=== PATIENT | male | born 1945 | race Caucasian/White ===

== ENCOUNTER 2016-12-31 11:05 | Inpatient (IN) | payer OTHER, MEDICARE ==
[~2016-12-31] VITALS: Ht 185.4 cm; Wt 90.9 kg
[2016-12-31] VITALS (13 sets, daily range): BP systolic 101–121; BP diastolic 61–83; PULSE 57–88; RESP 16–20; TEMP 98–98.5; O2SAT 59–99
[2016-12-31] MEDS ORDERED: NITROGLYCERIN 2% OINT 1 GM PACKET TOP ONE (11:30)
[2016-12-31] MEDS ORDERED: MORPHINE SULFATE 4 MG/ML INJ IV PUSH ONE (11:30)
[2016-12-31] MEDS ORDERED: SODIUM CHLORIDE 0.9% FLUSH 5 ML FLUSH IVF PRN ×2 (11:30→16:45)
[2016-12-31] MEDS ORDERED: ASPIRIN 81 MG CHEW TAB PO ONE (11:30)
--- NOTE | 2016-12-31 11:34 | PD ---
HPI . Chest pain Chief Complaint: Chest Pain Time Seen by Provider: 11:29 Travel History International Travel<30 days: No Contact w/Intl Traveler<30days: No Traveled to known affect area: No History of Present Illness HPI Patient presents with a three-day history of chest pain. He has been taking nitroglycerin with relief of his chest pain. He states that he required 3 nitroglycerin this morning. He reports some associated shortness of breath and diaphoresis. He denies nausea or dizziness. He states that his chest pain has been coming and going. He has not noted any exacerbating factor but it is relieved by nitroglycerin. Patient also reports a recent injury to his left chest wall. He has some discomfort associated with that. But, the pain that he presents to us with today is different from his rib pain. [id number]: Just to the left of the sternum QUALITY: Heavy DURATION: 3 days TIMING: Comes and goes CONTEXT: Known coronary artery disease MODIFYING FACTORS: Relieved by nitroglycerin ASSOCIATED SYMPTOMS: Shortness of breath and diaphoresis PFSH Past Medical History High Cholesterol: Yes Dementia: Yes ("Early Alzheimer's") Diabetes: Yes Patient Takes Glucophage: Yes Myocardial Infarction: Yes Tetanus Vaccination: Unknown Influenza Vaccination: No (Can't remember) Past Surgical History Appendectomy: Yes Coronary Artery Bypass Graft: Yes Eye Surgery: Yes (Left) Social History Alcohol Use: No Tobacco Use: No Substance Use: No Allergies-Medications (Allergen,Severity, Reaction): Coded Allergies: No Known Allergies (Unverified , 12/31/16) Reported Meds & Prescriptions Reported Meds & Active Scripts Active Reported Feosol (Ferrous Sulfate) 200 Mg Tab 200 Mg PO DAILY Hydrocodone-Acetaminophen 7.5-325 mg Tab 1 Tab PO TID PRN Mirtazapine 30 Mg Tab 30 Mg PO HS Atorvastatin (Atorvastatin Calcium) 80 Mg Tab 80 Mg PO HS Metformin (Metformin HCl) 1,000 Mg Tab 1,000 Mg PO BIDPC With meals Glipizide 5 Mg Tab 7.5 Mg PO BIDAC Take 30 minutes before a meal Donepezil 10 Mg Tab 10 Mg PO HS Januvia (Sitagliptin Phosphate) 100 Mg Tab 100 Mg PO DAILY Duloxetine DR (Duloxetine HCl) 60 Mg Capdr 60 Mg PO DAILY Gabapentin 300 Mg Cap 300 Mg PO TID Nitroglycerin Patch 24 HR (Nitroglycerin) 0.4 Mg/Hr Patch 0.4 Mg T-DERMAL DAILY PRN Lisinopril 5 Mg Tab 5 Mg PO DAILY Clopidogrel (Clopidogrel Bisulfate) 75 Mg Tab 75 Mg PO DAILY Aspirin Low Dose (Aspirin) 81 Mg Chew 81 Mg CHEW DAILY Omeprazole 20 Mg Tab 20 Mg PO BID Amcinonide Topical (Amcinonide) 0.1% Cream 1 Applic TOPICAL BID Apply a thin film to affected area(s) Review of Systems Except as stated in HPI: all other systems reviewed are Neg General / Constitutional: No: Fever, Chills Eyes: No: Blurred Vision HENT: Positive: Headaches Cardiovascular: Positive: Chest Pain or Discomfort Respiratory: Positive: Shortness of Breath Gastrointestinal: No: Nausea, Vomiting, Diarrhea Skin: Positive Other (diaphoresis) Physical Exam Narrative GENERAL: Open-heart appearing. No acute distress. SKIN: Warm and dry. HEAD: Atraumatic. Normocephalic. EYES: Pupils equal and round. ENT: No nasal bleeding or discharge. Mucous membranes pink and moist. NECK: Trachea midline. Neck is supple. CARDIOVASCULAR: Regular rate and rhythm. Heart sounds are normal. RESPIRATORY: No accessory muscle use. Lungs are clear with full air movement throughout. He does have some tenderness to palpation of the left lateral chest wall. GASTROINTESTINAL: Abdomen soft, non-tender, nondistended. MUSCULOSKELETAL: No obvious deformities. No edema. NEUROLOGICAL: Awake and alert. No obvious cranial nerve deficits. Motor grossly within normal limits. Normal speech. PSYCHIATRIC: Appropriate mood and affect; insight and judgment normal. Data Data Last Documented VS Vital Signs Date Time Temp Pulse Resp B/P Pulse Ox O2 Delivery O2 Flow Rate FiO2 12/31/16 12:55 76 18 101/61 96 Nasal Cannula 2 12/31/16 11:15 98.0 Orders Basic Metabolic Panel (Bmp) (12/31/16 11:29) Ckmb (Isoenzyme) Profile (12/31/16 11:29) Complete Blood Count With Diff (12/31/16 11:29) Magnesium (Mg) (12/31/16 11:29) Prothrombin Time / Inr (Pt) (12/31/16 11:29) Act Partial Throm Time (Ptt) (12/31/16 11:29) Troponin I (12/31/16 11:29) Chest, Single Ap (12/31/16 11:29) Ecg Monitoring (12/31/16 11:29) Bilateral Bp Monitoring (12/31/16 11:29) Iv Access Insert/Monitor (12/31/16 11:29) Oximetry (12/31/16 11:29) Oxygen Administration (12/31/16 11:29) Aspirin Chew (Aspirin Chew) (12/31/16 11:30) Morphine Inj (Morphine Inj) (12/31/16 11:30) Nitroglycerin 2% Oint (Nitroglycerin 2% (12/31/16 11:30) Sodium Chloride 0.9% Flush (Ns Flush) (12/31/16 11:30) CKMB (12/31/16 11:30) CKMB% (12/31/16 11:30) Labs Laboratory Tests Test 12/31/16 11:30 White Blood Count 6.2 TH/MM3 Red Blood Count 5.03 MIL/MM3 Hemoglobin 12.8 GM/DL Hematocrit 38.8 % Mean Corpuscular Volume 77.3 FL Mean Corpuscular Hemoglobin 25.5 PG Mean Corpuscular Hemoglobin 32.9 % Concent Red Cell Distribution Width 15.4 % Platelet Count 208 TH/MM3 Mean Platelet Volume 9.1 FL Neutrophils (%) (Auto) 62.5 % Lymphocytes (%) (Auto) 28.5 % Monocytes (%) (Auto) 6.2 % Eosinophils (%) (Auto) 1.3 % Basophils (%) (Auto) 1.5 % Neutrophils # (Auto) 3.8 TH/MM3 Lymphocytes # (Auto) 1.8 TH/MM3 Monocytes # (Auto) 0.4 TH/MM3 Eosinophils # (Auto) 0.1 TH/MM3 Basophils # (Auto) 0.1 TH/MM3 CBC Comment DIFF FINAL Differential Comment Prothrombin Time 11.9 SEC Prothromb Time International 1.1 RATIO Ratio Activated Partial 25.0 SEC Thromboplast Time Sodium Level 137 MEQ/L Potassium Level 4.4 MEQ/L Chloride Level 99 MEQ/L Carbon Dioxide Level 25.7 MEQ/L Anion Gap 12 MEQ/L Blood Urea Nitrogen 16 MG/DL Creatinine 1.00 MG/DL Estimat Glomerular Filtration 73 ML/MIN Rate Random Glucose 384 MG/DL Calcium Level 9.1 MG/DL Magnesium Level 1.5 MG/DL Total Creatine Kinase 189 U/L Creatine Kinase MB 1.5 NG/ML Troponin I LESS THAN 0.02 NG/ML MDM Medical Decision Making Medical Screen Exam Complete: Yes Emergency Medical Condition: Yes Interpretation(s) EKG shows a sinus rhythm. He had a single PVC. He has some nonspecific lateral T-wave changes. This patient has no old EKGs in our system for comparison. Differential Diagnosis Differential diagnosis of chest pain includes but is not limited to musculoskeletal pain, pulmonary embolism, acute coronary syndrome, pneumonia, pleurisy Narrative Course Patient presents for evaluation of a three-day history of chest pain which has come and gone and which has been relieved by nitroglycerin. CBC & BMP Diagram 12/31/16 11:30 Initial cardiac enzymes are negative. The patient is currently nothing by mouth for cardiac catheter. He will be allowed permissive hyperglycemia. No evidence of DKA. Critical Care Narrative Aggregate critical care time was 45 minutes. Time to perform other separately billable procedures was not included in the critical care time. My time did not include minutes spent treating any other patients simultaneously or on activities that did not directly contribute to the patient's treatment. The services I provided to this patient were to treat and/or prevent clinically significant deterioration due to possible ACS/non-STEMI I provided critical care services requiring my management, as noted below: Chart data review, documentation time, medication orders and management, vital sign assessments/reviewing monitor data, ordering and reviewing lab tests, ordering and interpreting/reviewing x-rays and diagnostic studies, care of the patient and discussion of the patient with the admitting physicians Physician Communication Physician Communication Dr. Elkins once the patient be sent to [facility] for catheterization today. He would like for the patient to be admitted to the hospitalist service. I have subsequently spoken with Dr. Georges. Diagnosis Primary Impression: Chest pain Qualified Code: R07.9 - Chest pain, unspecified type Admitting Information Admitting Physician Requests: Observation Condition: Stable Hailee Burns MD Dec 31, 2016 11:34
[2016-12-31 11:49] LABS: AUTOMATED NEUTROPHIL # 3.8 TH/MM3 (1.8-7.7); BASOPHIL # 0.1 TH/MM3 (0-0.2); BASOPHIL % 1.5 % (0.0-2.0); EOSINOPHIL # 0.1 TH/MM3 (0-0.4); EOSINOPHIL % 1.3 % (0.0-4.0); HEMATOCRIT 38.8 % (39.0-51.0); HEMO FLAGS DIFF FINAL; LYMPH % 28.5 % (9.0-44.0); LYMPHOCYTE # 1.8 TH/MM3 (1.0-4.8); MEAN CELL VOLUME 77.3 FL (80.0-100.0); MEAN CORPUSCULAR HEMOGLOBIN 25.5 PG (27.0-34.0); MEAN CORPUSCULAR HGB CONC 32.9 % (32.0-36.0); MONO % 6.2 % (0.0-8.0); NEUT % 62.5 % (16.0-70.0); PLATELET COUNT 208 TH/MM3 (150-450); RED BLOOD COUNT 5.03 MIL/MM3 (4.50-5.90); RED CELL DISTRIBUTION WIDTH 15.4 % (11.6-17.2); WHITE BLOOD COUNT 6.2 TH/MM3 (4.0-11.0)
[2016-12-31 11:53] LABS: CHLORIDE 99 MEQ/L (98-107); POTASSIUM 4.4 MEQ/L (3.5-5.1); SODIUM (NA) 137 MEQ/L (136-145)
[2016-12-31 11:56] LABS: ANION GAP 12 MEQ/L (5-15); BICARBONATE 25.7 MEQ/L (21.0-32.0); BLOOD UREA NITROGEN 16 MG/DL (7-18); MAGNESIUM 1.5 MG/DL (1.5-2.5)
[2016-12-31 11:57] LABS: INTERNATIONAL NORMALIZED RATIO 1.1 RATIO; PROTHROMBIN TIME - PATIENT 11.9 SEC (9.8-11.6)
[2016-12-31 11:59] LABS: GLOMERULAR FILTRATION RATE 73 ML/MIN (>89)
[2016-12-31 12:02] LABS: CREATINE KINASE 189 U/L (39-308)
--- NOTE | 2016-12-31 12:11 | RADHPO ---
EXAM DATE/TIME: 12/31/2016 12:01 [place] COMPARISON: No previous studies available for comparison. INDICATIONS : Chest pain MEDICAL HISTORY : Hypercholesterolemia. SURGICAL HISTORY : CABG. Cardiac stents ENCOUNTER: Initial ACUITY: 1 day PAIN SCORE: 4/10 LOCATION: Bilateral chest FINDINGS: No infiltrate, effusion or pneumothorax. Heart size upper limits of normal. Patient has had previous median sternotomy. CONCLUSION: No evidence of acute cardiopulmonary disease. Joey Cordoba MD on December 31, 2016 at 12:09 Board Certified Radiologist. This report was verified electronically.
[2016-12-31 12:15] LABS: CKMB 1.5 NG/ML (0.5-3.6)
[2016-12-31] MEDS ORDERED: AMCIN.1%T TOPICAL (12:47)
[2016-12-31] MEDS ORDERED: DONE10TA7 PO (12:47)
[2016-12-31] MEDS ORDERED: LISI-519 PO (12:47)
[2016-12-31] MEDS ORDERED: CLOP75TA PO (12:47)
[2016-12-31] MEDS ORDERED: FERR200T PO (12:47)
[2016-12-31] MEDS ORDERED: NITR0.4D2 T-DERMAL (12:47)
[2016-12-31] MEDS ORDERED: ATOR1TAB18 PO (12:47)
[2016-12-31] MEDS ORDERED: SITA1TAB2 PO (12:47)
[2016-12-31] MEDS ORDERED: ASPI81CH37 CHEW (12:47)
[2016-12-31] MEDS ORDERED: METF1000 PO (12:47)
[2016-12-31] MEDS ORDERED: GLIP5TAB8 PO (12:47)
[2016-12-31] MEDS ORDERED: MIRT30TA PO (12:47)
[2016-12-31] MEDS ORDERED: DULO1CAP3 PO (12:47)
[2016-12-31] MEDS ORDERED: GABA300C5 PO (12:47)
[2016-12-31] MEDS ORDERED: HYDR-3580 PO (12:47)
[2016-12-31] MEDS ORDERED: OMEP20TA PO (12:47)
[2016-12-31] MEDS ORDERED: SODIUM CHLORIDE 0.9% FLUSH 5 ML FLUSH FLUSH PRN (14:15)
[2016-12-31] MEDS ORDERED: NITROGLYCERIN 0.4 MG SL 25 TABS/BTL SL PRN (14:15)
[2016-12-31] MEDS ORDERED: ACETAMINOPHEN 325 MG TAB PO PRN (15:00)
[2016-12-31] MEDS ORDERED: IOHEXOL 350 MG/ML 100 ML BTL (for Cath Lab) OTHER ONE (15:07)
[2016-12-31] MEDS ORDERED: HEPARIN-NS/PF INJ 500 ML ONE (15:14)
[2016-12-31] MEDS ORDERED: MIDAZOLAM HCL 2 MG/2 ML VIAL ONE (15:14)
[2016-12-31] MEDS ORDERED: HEPARIN SODIUM - IV 10,000 UNITS/10 ML VIAL ONE (16:03)
[2016-12-31] MEDS ORDERED: VERAPAMIL HCL 5 MG/2 ML VIAL ONE (16:27)
[2016-12-31] MEDS ORDERED: MISC INFORMATION XX ONE (16:45)
[2016-12-31] MEDS ORDERED: ATROPINE SULFATE 1 MG/ML VIAL IV PRN (16:45)
[2016-12-31] MEDS ORDERED: ONDANSETRON HCL 4 MG/2 ML VIAL IV PRN (17:00)
--- NOTE | 2016-12-31 19:33 | MB ---
cc: RAHEL KING DATE OF CONSULTATION 12/31/16 1944 REASON FOR CONSULTATION Chest pain. HISTORY OF PRESENT ILLNESS 71-year old male with known coronary artery disease status post five vessel bypass surgery, hypertension and hyperlipidemia that presented to the [place] emergency department complaining of chest discomfort that was relieved by nitroglycerin. Evaluation in the emergency department. His troponins were negative. His EKG showed no acute ST changes, however, given the patient's presentation, he was transferred to [facility] for further management and evaluation by cardiology. He reports some chest discomfort with exertion while gardening and relieved by rest and nitroglycerin. He reports being compliant with medications. He denies fevers, chills, recent travel, nausea, vomiting, diarrhea, abdominal pain, lightheadedness, syncope or bleeding issues. REVIEW OF SYSTEMS Negative except for what is mentioned in HPI. PAST MEDICAL HISTORY 1. Hyperlipidemia, 2. Hypertension, 3. Diabetes. 4. Dementia 5. Myocardial infarction status post bypass surgery, 6. Appendectomy. SOCIAL HISTORY Denies alcohol, tobacco or illicit drug use. FAMILY HISTORY Noncontributory. MEDICATIONS Cardiac home medications 1. Lipitor 80 mg p.o. daily. 2. Nitroglycerin 0.4 mg p.r.n. for chest pain 3. Lisinopril 5 mg p.o. daily. 4. Plavix 75 mg p.o. daily. 5. Aspirin 81 mg p.o. daily. ALLERGIES NO KNOWN DRUG ALLERGIES PHYSICAL EXAMINATION VITAL SIGNS: Temperature 98, respiratory rate 18, heart rate 68, blood pressure 101/66, O2 sats 95% ON 2 liters nasal cannula. GENERAL: He is alert, awake, oriented times three in no acute distress. NECK: No JVD, no carotid bruits. HEART: Regular rate and rhythm. No murmurs, rubs or gallops. ABDOMEN: Soft, nontender, nondistended. Positive bowel sounds. LUNGS: Clear to auscultation bilaterally. EXTREMITIES: No cyanosis or edema. Pulses throughout. LABORATORY DATA CBC - hemoglobin 12, hematocrit 38, platelet count 208, INR 1.1. Chemistries - BUN 16, creatinine 1.0, troponin less than 0.02. IMAGING STUDIES Chest x-ray - No evidence of acute cardiopulmonary process. ASSESSMENT/PLAN 71-year-old male presenting to the emergency department with angina concerning for acute coronary syndrome. He remains hemodynamically stable and chest pain free currently. Given the patient's presentation as well as known history of coronary artery disease, I think it is reasonable to pursue an invasive risk stratification strategy with a left heart cath plus/minus intervention. Risks, benefits of left heart cath/PCI including but not limited to bleeding, infection , acute kidney injury, stroke, emergent bypass surgery, RI, stroke and again explained to the patient. The patient understands the risks and he is willing to proceed. RECOMMENDATIONS 1. Keep n.p.o. for left heart cath today 2. Continue medication optimization. The patient should be started on long- acting nitrate Imdur 30 mg p.o. daily as well as on metoprolol 12.5 mg p.o. b.i.d. Thank you for the opportunity to take part in the care of this. patient. Further therapy to be determined. MD EMILIA Saeed/ /5:10 PM /7:12 PM MTDLary
[2016-12-31] MEDS ORDERED: GLUCAGON 1 MG/ML VIAL OTHER PRN (20:45)
[2016-12-31] MEDS ORDERED: DEXTROSE 50% IN WATER 50 ML VIAL(D50) IV PUSH PRN (20:45)
[2016-12-31] MEDS ORDERED: SODIUM CHLORIDE 0.9% FLUSH 5 ML FLUSH IVF SCH (21:00)
[2016-12-31] MEDS ORDERED: MIRTAZAPINE 15 MG TAB PO SCH (21:00)
[2016-12-31] MEDS: SODIUM CHLORIDE 0.9% FLUSH 5 ML FLUSH FLUSH SCH (21:05)
[2016-12-31] MEDS: MORPHINE SULFATE 4 MG/ML INJ IV PUSH PRN (21:06)
[2016-12-31] MEDS: METOPROLOL TARTRATE 25 MG TAB PO SCH (21:06)
[2016-12-31] MEDS: INSULIN ASPART SUPPLEMENTAL SCALE SQ SCH (21:17)
[2016-12-31] MEDS: SUMAtriptan INJ 6 MG/0.5 ML VIAL SQ PRN (23:53)
[2017-01-01] VITALS (14 sets, daily range): BP systolic 97–117; BP diastolic 67–76; PULSE 50–74; RESP 18–20; TEMP 97.7–98; O2SAT 95–96
[2017-01-01] MEDS: INSULIN ASPART SUPPLEMENTAL SCALE SQ SCH ×2 (06:41→11:15)
[2017-01-01] MEDS ORDERED: ISOSORBIDE MONONITRATE 30 MG TAB PO SCH (07:00)
[2017-01-01] MEDS: MORPHINE SULFATE 4 MG/ML INJ IV PUSH PRN (07:51)
[2017-01-01] MEDS: METOPROLOL TARTRATE 25 MG TAB PO SCH (07:51)
--- NOTE | 2017-01-01 08:57 | HHI.HP ---
HPI Service [facility] Hospitalists Primary Care Physician Juan Toussaint MD Admission Diagnosis chest pain Diagnoses: Chief Complaint: Chest pain Travel History International Travel<30 Days: No Contact w/Intl Traveler <30 Da: No Traveled to Known Affected Are: No History of Present Illness 71 years old male with history of coronary artery disease status post 5 vessel CABG, hypertension hyperlipidemia, initially presented to [facility] with waning of her chest pain that was relieved at home with nitroglycerin EKG was with no acute ST changes patient transferred to [facility], he underwent heart catheter, report pending but verbal report stating no acute lesion. I saw patient this morning he was resting comfortably in bed, denied any chest pain, no nausea or vomiting, no abdominal pain diarrhea constipation, no lightheaded or dizziness but he doesn't work having headache and attributed it to the nitroglycerin. Also patient reported to me that he now remember his pain might need you to chest trauma he got a few days ago with his vehicle door and his crutch while he was trying to get his dog out of the car. Review of Systems All 10 systems reviewed and was positive for what is mentioned in history of present illness otherwise negative Past Family Social History Past Medical History Hyperlipidemia Hypertension Diabetes mellitus Dementia Coronary artery disease status post KS and CABG Appendectomy Past Surgical History Appendectomy Allergies: Coded Allergies: No Known Allergies (Unverified , 12/31/16) Family History Father of CHF Social History Denied tobacco alcohol or illicit drug abuse Physical Exam Vital Signs Vital Signs Date Time Temp Pulse Resp B/P Pulse Ox O2 Delivery O2 Flow Rate FiO2 01/01/17 07:40 59 01/01/17 07:40 97.7 74 18 107/69 96 01/01/17 06:00 54 01/01/17 05:00 52 01/01/17 04:40 98.0 56 20 105/76 96 01/01/17 04:00 63 20 97/67 96 01/01/17 04:00 52 01/01/17 03:00 57 20 113/70 95 01/01/17 03:00 58 01/01/17 02:00 50 01/01/17 02:00 52 20 107/71 95 01/01/17 01:00 52 01/01/17 01:00 50 20 117/71 95 01/01/17 00:53 20 01/01/17 00:00 64 12/31/16 23:53 98.5 68 20 105/68 97 12/31/16 23:36 20 12/31/16 23:00 57 12/31/16 23:00 75 20 112/83 93 12/31/16 22:00 63 20 121/71 95 12/31/16 22:00 63 12/31/16 21:11 20 12/31/16 21:00 60 12/31/16 21:00 62 20 107/65 95 12/31/16 20:00 65 20 109/71 96 12/31/16 20:00 65 12/31/16 19:00 98.5 69 20 115/72 94 12/31/16 19:00 68 12/31/16 18:00 60 12/31/16 17:06 59 12/31/16 17:06 59 16 115/73 59 12/31/16 13:40 68 18 101/66 95 Nasal Cannula 2 12/31/16 12:55 76 18 101/61 96 Nasal Cannula 2 12/31/16 11:45 88 18 106/69 99 Nasal Cannula 2 108/75 12/31/16 11:45 16 12/31/16 11:40 99 Nasal Cannula 2 12/31/16 11:40 99 Nasal Cannula 2 12/31/16 11:20 73 12/31/16 11:15 98.0 73 18 111/72 95 Physical Exam GENERAL: This is a well-nourished, well-developed patient, in no apparent distress. SKIN: No rashes, warm and dry HEAD: Atraumatic. Normocephalic. EYES: Pupils equal round and reactive. Extraocular motions intact. No scleral icterus. ENT: Nose without bleeding, or drainage, Airway patent. NECK: Trachea midline. Supple CARDIOVASCULAR: Regular rate and rhythm without murmurs, gallops, or rubs. RESPIRATORY: Fair air entry bilaterally. No wheezes, rales, or rhonchi. GASTROINTESTINAL: Abdomen soft, non-tender, nondistended. Positive bowel sounds MUSCULOSKELETAL: Extremities without clubbing, cyanosis, or edema. Pedal pulses appreciated NEUROLOGICAL: Awake and alert. Moves all extremity. Normal speech.no focal neurological deficit Laboratory Laboratory Tests Test 12/31/16 11:30 White Blood Count 6.2 Red Blood Count 5.03 Hemoglobin 12.8 Hematocrit 38.8 Mean Corpuscular Volume 77.3 Mean Corpuscular Hemoglobin 25.5 Mean Corpuscular Hemoglobin 32.9 Concent Red Cell Distribution Width 15.4 Platelet Count 208 Mean Platelet Volume 9.1 Neutrophils (%) (Auto) 62.5 Lymphocytes (%) (Auto) 28.5 Monocytes (%) (Auto) 6.2 Eosinophils (%) (Auto) 1.3 Basophils (%) (Auto) 1.5 Neutrophils # (Auto) 3.8 Lymphocytes # (Auto) 1.8 Monocytes # (Auto) 0.4 Eosinophils # (Auto) 0.1 Basophils # (Auto) 0.1 CBC Comment DIFF FINAL Differential Comment Prothrombin Time 11.9 Prothromb Time International 1.1 Ratio Activated Partial 25.0 Thromboplast Time Sodium Level 137 Potassium Level 4.4 Chloride Level 99 Carbon Dioxide Level 25.7 Anion Gap 12 Blood Urea Nitrogen 16 Creatinine 1.00 Estimat Glomerular Filtration 73 Rate Random Glucose 384 Calcium Level 9.1 Magnesium Level 1.5 Total Creatine Kinase 189 Creatine Kinase MB 1.5 Troponin I LESS THAN 0.02 Result Diagram: 12/31/16 1130 12/31/16 1130 Imaging Last Impressions Chest X-Ray 12/31/16 1129 Signed Impressions: Service Date/Time: Saturday, December 31, 2016 12:01 - CONCLUSION: No evidence of acute cardiopulmonary disease. Joey Cordoba MD Assessment and Plan Assessment and Plan 71 years old male came with Chest pain a rule out ACS in a patient with history of coronary artery disease and CABG: Aspirin, oxygen, Morphine iv Continue statin iraida, ASHIA inhibitor, statin Status post heart catheter by Dr. Elkins 12/31/16 verbal report cleaning patent, possible underlying musculoskeletal, may benefit from few days NSAID Hyperlipidemia continue statin Hypertension continue ASHIA inhibitor and beta iraida Diabetes mellitus hold metformin, continue glipizide, Accu-Chek with sliding scale Dementia continue the Panafil Coronary artery disease status post KS and CABG: Workup as above DVT prophylaxis with ambulation, heparin Discussed Condition With Patient Physician Certification 2 Midnight Certification Type: Admission for Inpatient Services Order for Inpatient Services The services are ordered in accordance with Medicare regulations or non- Medicare payer requirements, as applicable. In the case of services not specified as inpatient-only, they are appropriately provided as inpatient services in accordance with the 2-midnight benchmark. Estimated LOS (days): 2 days is the estimated time the patient will need to remain in the hospital, assuming treatment plan goals are met and no additional complications. Post-Hospital Plan: Not yet determined Ana Lilia Lobato MD Jan 01, 2017 08:57
[2017-01-01] MEDS: SODIUM CHLORIDE 0.9% FLUSH 5 ML FLUSH FLUSH SCH (09:00)
[2017-01-01] MEDS ORDERED: DULoxetine HCl DR 60 MG CAP PO SCH (09:00)
[2017-01-01] MEDS ORDERED: PILL SPLITTER OTHER PRN (11:15)
--- NOTE | 2017-01-01 11:50 | PD.CARD.PN ---
Subjective Subjective Remarks No chest pain, no shortness of breath Objective Medications Current Medications Medications (Trade) Dose Ordered Sig/Marty Route Start Time Stop Time Status Last Admin (NS Flush) 2 ml UNSCH PRN IVF 12/31/16 11:30 (NS Flush) 2 ml UNSCH PRN FLUSH 12/31/16 14:15 (NS Flush) 2 ml BID FLUSH 12/31/16 21:00 12/31/16 21:05 (Tylenol) 650 mg Q4H PRN PO 12/31/16 15:00 12/31/16 22:36 (Nitrostat Sl) 0.4 mg Q5M PRN SL 12/31/16 14:15 (Morphine Inj) 4 mg Q3H PRN IV PUSH 12/31/16 15:00 01/01/17 07:51 (NS Flush) 2 ml BID IVF 12/31/16 21:00 12/31/16 21:05 (NS Flush) 2 ml UNSCH PRN IVF 12/31/16 16:45 (Atropine Inj) 0.5 mg UNSCH PRN IV 12/31/16 16:45 (Zofran Inj) 4 mg Q4HR PRN IV 12/31/16 17:00 12/31/16 21:06 (Lopressor) 12.5 mg Q12HR PO 12/31/16 21:00 01/01/17 07:51 (Imdur) 30 mg DAILY@07 PO 01/01/17 07:00 01/01/17 06:39 (D50w (Vial) Inj) 25 ml UNSCH PRN IV PUSH 12/31/16 20:45 (Glucagon Inj) 1 mg UNSCH PRN OTHER 12/31/16 20:45 (Cymbalta Dr) 60 mg DAILY PO 01/01/17 09:00 01/01/17 07:51 (Remeron) 30 mg HS PO 12/31/16 21:00 12/31/16 21:06 (Imitrex Inj) 6 mg UNSCH PRN SQ 12/31/16 22:45 12/31/16 23:53 (Lipitor) 80 mg HS PO 01/01/17 21:00 (Plavix) 75 mg DAILY PO 01/01/17 12:00 (Aricept) 10 mg HS PO 01/01/17 21:00 (Ferrous Sulfate) 325 mg DAILY PO 01/02/17 09:00 (Neurontin) 300 mg TID PO 01/01/17 13:00 (Glucotrol) 7.5 mg BIDAC PO 01/01/17 16:00 (Prinivil) 5 mg DAILY PO 01/02/17 09:00 (Protonix) 20 mg BID PO 01/01/17 21:00 (Pill Splitter) 1 ea UNSCH PRN OTHER 01/01/17 11:15 Vital Signs / I&O Vital Signs Date Time Temp Pulse Resp B/P Pulse Ox O2 Delivery O2 Flow Rate FiO2 01/01/17 07:40 59 01/01/17 07:40 97.7 74 18 107/69 96 01/01/17 06:00 54 01/01/17 05:00 52 01/01/17 04:40 98.0 56 20 105/76 96 01/01/17 04:00 63 20 97/67 96 01/01/17 04:00 52 01/01/17 03:00 57 20 113/70 95 01/01/17 03:00 58 01/01/17 02:00 50 01/01/17 02:00 52 20 107/71 95 01/01/17 01:00 52 01/01/17 01:00 50 20 117/71 95 01/01/17 00:53 20 01/01/17 00:00 64 12/31/16 23:53 98.5 68 20 105/68 97 12/31/16 23:36 20 12/31/16 23:00 57 12/31/16 23:00 75 20 112/83 93 12/31/16 22:00 63 20 121/71 95 12/31/16 22:00 63 12/31/16 21:11 20 12/31/16 21:00 60 12/31/16 21:00 62 20 107/65 95 12/31/16 20:00 65 20 109/71 96 12/31/16 20:00 65 12/31/16 19:00 98.5 69 20 115/72 94 12/31/16 19:00 68 12/31/16 18:00 60 12/31/16 17:06 59 12/31/16 17:06 59 16 115/73 59 12/31/16 13:40 68 18 101/66 95 Nasal Cannula 2 12/31/16 12:55 76 18 101/61 96 Nasal Cannula 2 12/31/16 11:45 88 18 106/69 99 Nasal Cannula 2 108/75 12/31/16 11:45 16 I/O 12/31/16 12/31/16 12/31/16 01/01/17 01/01/17 01/01/17 07:00 15:00 23:00 07:00 15:00 23:00 Intake Total 480 ml Output Total 750 ml Balance -270 ml Intake Oral 480 ml IV Total 0 ml Output Urine Total 750 ml # Bowel Movements 0 Physical Exam GENERAL: NAD, AAOx3 SKIN: Warm and dry. HEAD: Atraumatic. Normocephalic. EYES: Pupils equal and round. No scleral icterus. No injection or drainage. ENT: No nasal bleeding or discharge. Mucous membranes pink and moist. NECK: Trachea midline. No JVD. CARDIOVASCULAR: Regular rate and rhythm. Sternotomy scar noted. Positive for chest pain with palpitation of the left lateral ribs and sternal area RESPIRATORY: No accessory muscle use. Clear to auscultation. Breath sounds equal bilaterally. GASTROINTESTINAL: Abdomen soft, non-tender, nondistended. Hepatic and splenic margins not palpable. MUSCULOSKELETAL: Extremities without clubbing, cyanosis, or edema. No obvious deformities. NEUROLOGICAL: Awake and alert. No obvious cranial nerve deficits. Motor grossly within normal limits. Five out of 5 muscle strength in the arms and legs. Normal speech. PSYCHIATRIC: Appropriate mood and affect; insight and judgment normal. Laboratory Laboratory Tests Test 12/31/16 11:30 White Blood Count 6.2 TH/MM3 (4.0-11.0) Red Blood Count 5.03 MIL/MM3 (4.50-5.90) Hemoglobin 12.8 GM/DL (13.0-17.0) Hematocrit 38.8 % (39.0-51.0) Mean Corpuscular Volume 77.3 FL (80.0-100.0) Mean Corpuscular Hemoglobin 25.5 PG (27.0-34.0) Mean Corpuscular Hemoglobin 32.9 % Concent (32.0-36.0) Red Cell Distribution Width 15.4 % (11.6-17.2) Platelet Count 208 TH/MM3 (150-450) Mean Platelet Volume 9.1 FL (7.0-11.0) Neutrophils (%) (Auto) 62.5 % (16.0-70.0) Lymphocytes (%) (Auto) 28.5 % (9.0-44.0) Monocytes (%) (Auto) 6.2 % (0.0-8.0) Eosinophils (%) (Auto) 1.3 % (0.0-4.0) Basophils (%) (Auto) 1.5 % (0.0-2.0) Neutrophils # (Auto) 3.8 TH/MM3 (1.8-7.7) Lymphocytes # (Auto) 1.8 TH/MM3 (1.0-4.8) Monocytes # (Auto) 0.4 TH/MM3 (0-0.9) Eosinophils # (Auto) 0.1 TH/MM3 (0-0.4) Basophils # (Auto) 0.1 TH/MM3 (0-0.2) CBC Comment DIFF FINAL Differential Comment Prothrombin Time 11.9 SEC (9.8-11.6) Prothromb Time International 1.1 RATIO Ratio Activated Partial 25.0 SEC Thromboplast Time (24.3-30.1) Sodium Level 137 MEQ/L (136-145) Potassium Level 4.4 MEQ/L (3.5-5.1) Chloride Level 99 MEQ/L (98-107) Carbon Dioxide Level 25.7 MEQ/L (21.0-32.0) Anion Gap 12 MEQ/L (5-15) Blood Urea Nitrogen 16 MG/DL (7-18) Creatinine 1.00 MG/DL (0.60-1.30) Estimat Glomerular Filtration 73 ML/MIN (>89) Rate Random Glucose 384 MG/DL (74-106) Calcium Level 9.1 MG/DL (8.5-10.1) Magnesium Level 1.5 MG/DL (1.5-2.5) Total Creatine Kinase 189 U/L (39-308) Creatine Kinase MB 1.5 NG/ML (0.5-3.6) Troponin I LESS THAN 0.02 NG/ML (0.02-0.05) Assessment and Plan Problem List: (1) Chest pain (2) CAD (coronary artery disease) (3) Musculoskeletal chest pain (4) FH: CABG (coronary artery bypass surgery) Assessment and Plan 1) Chest pain may be musculoskeletal in nature, definitely left ribs pain with palpitation, sternal area somewhat hurts with palpitation 2) Cath showing patent grafts with slow flow in the SVG to PDA, started on anti- anginal medications, would continue Imdur if possible, but heart rate 50-60 more likely to cause problems so will discontinue If unable to tolerate Imdur due to headache, would consider Norvasc 3) 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 Monreal, in 2-3 weeks Problem Qualifiers (1) Chest pain: Qualified Code: R07.9 - Chest pain, unspecified type Theodore Watt DO Jan 01, 2017 11:50
[2017-01-01] MEDS ORDERED: ISOS30TA3 PO (11:56)
[2017-01-01] MEDS ORDERED: CLOPIDOGREL 75 MG TAB PO SCH (12:00)
--- NOTE | 2017-01-01 12:00 | HHI.PR ---
Addendum to Inpatient Note Additional Information addendum : received a call from Valentino , telling me the heart cath is unremarkable , he is ok to dc pt today , no lopressor due to bradycardia , isosorbid ER added instead of nitro patch Discharge patient to home Condition on discharge: Improved healthy heart diabetic ada 1800 Diet as tolerated Ad Adriana activity Rx written: isosorbid er Follow-up with primary care physician in 1 week , cardio as dircted Ana Lilia Lobato MD Jan 01, 2017 12:00
[2017-01-01] MEDS ORDERED: GABAPENTIN 300 MG CAP PO SCH (13:00)
[2017-01-01] MEDS: SUMAtriptan INJ 6 MG/0.5 ML VIAL SQ PRN (14:06)
[2017-01-01] MEDS ORDERED: glipiZIDE 5 MG TAB PO SCH (16:00)
--- NOTE | 2017-01-01 17:54 | EKG ---
Date Performed: 12/31/2016 Time Performed: 11:09:00 PTAGE: 71 years EKG: Sinus rhythm WITH PVC'S NONSPECIFIC ST- T CHANGE. NO PREVIOUS TRACING FOR COMPARISON. Abnormal ECG NO PREVIOUS TRACING DOCTOR: Bro Tejeda Interpretating Date/Time 01/01/2017 17:52:34
--- NOTE | 2017-01-01 17:59 | EKG ---
Date Performed: 12/31/2016 Time Performed: 14:59:32 PTAGE: 71 years EKG: Possible ectopic atrial rhythm Nonspecific ST T wave change. Since previous tracing 01/01/20 17, Sinus rhythm maybe varying to an ectopic atrial rhythm. Otherwise no significant change. Abnormal ECG PREVIOUS TRACING : 12/31/2016 11.09 DOCTOR: Bro Tejeda Interpretating Date/Time 01/01/2017 17:59:08
--- NOTE | 2017-01-01 18:01 | EKG ---
Date Performed: 12/31/2016 Time Performed: 21:22:26 PTAGE: 71 years EKG: Ectopic atrial rhythm Diffused nonspecific ST T changed Compared to prior tracing no signif icant change PREVIOUS TRACING : 12/31/2016 14.59 DOCTOR: Bro Tejeda Interpretating Date/Time 01/01/2017 18:00:56
--- NOTE | 2017-01-01 18:07 | EKG ---
Date Performed: 01/01/2017 Time Performed: 02:19:26 PTAGE: 71 years EKG: Sinus rhythm Diffused nonspecific ST- T change. Since PREVIOUS TRACING 01/01/2017, there is variation in the P waves that now suggest that the patient is in /out of ectopic atrial rhythm. This strip shows generally that patient is in sinus rhyt hm. This is a minor abnormality and probably clinically insignificant. PREVIOUS TRACIN01/01/2017 0 9.11 DOCTOR: Bro Tejeda Interpretating Date/Time 01/01/2017 18:07:19
[2017-01-01] MEDS ORDERED: DONEPEZIL HCL 5 MG TAB PO SCH (21:00)
[2017-01-01] MEDS ORDERED: ATORVASTATIN 80 MG TAB PO SCH (21:00)
[2017-01-01] MEDS ORDERED: PANTOPRAZOLE SOD 20 MG DELAYED RELEASE TAB PO SCH (21:00)
[2017-01-02] MEDS ORDERED: LISINOPRIL 5 MG TAB PO SCH (09:00)
[2017-01-02] MEDS ORDERED: FERROUS SULFATE 325 MG (65 MG ELEMENTAL IRON) TAB PO SCH (09:00)
--- NOTE | 2017-02-10 15:39 | MA ---
cc: RAHEL KING DATE: 02/10/2017. PROCEDURES PERFORMED: 1. Left heart catheterization. 2. Selective right and left coronary angiography. 3. Selective saphenous vein graft angiography. 4. Selective BAUMANN angiography. 5. Right common femoral artery angiography. INDICATIONS FOR THE PROCEDURE: Unstable angina. DESCRIPTION OF THE PROCEDURE IN DETAIL: Consent signed. The patient was taken into the cardiac chemistry laboratory technician in a fasting using 1% lidocaine for local anesthesia and a micropuncture kit. A 5-Irish sheath was inserted into the right common femoral artery. Right common femoral artery angiography was done to confirm position of the sheath. Then selective right and left coronary angiography was performed with a JR-4 and JL-4 diagnostic catheters. Saphenous vein graft angiography was done with a JR-4 as well. We did have some difficulty engaging the BAUMANN for which we took access from the left arm to do selective shots of the BAUMANN to the left anterior descending. Angiography was taken with multiple views. The patient tolerated the procedure well without complications. The estimated blood loss was less than 30 cc. Total contrast used was 75 cc. RESULTS: ANGIOGRAPHY: 1. Right coronary artery 100% occluded. Dominant 2. Left main patent. 3. Left anterior descending 100% occluded. 4. Left circumflex artery patent with minimal luminal irregularities and nonobstructive CAD. Obtuse marginal branch #2 occluded. GRAFT ANGIOGRAPHY: Saphenous vein graft to the diagonal is patent. Saphenous vein graft to the OM 1 patent. Saphenous vein graft to posterior descending artery patent. BAUMANN to the left anterior descending patent. CONCLUSIONS: Severe agdaagux vessel coronary artery disease with patent BAUMANN to the left anterior descending, saphenous vein graft to the diagonal, saphenous vein graft to the obtuse marginal branch and saphenous vein graft to the right coronary artery. RECOMMENDATIONS: Continue aggressive medical management for secondary prevention of coronary artery disease and therapeutic changes. 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 MD EMILIA Saeed/MICHELLE /3:18 PM /3:31 PM LYDIA
== END 2017-01-01 15:35 | disposition home or self-care (01) | DRG 287 ==
LOC: PHED 11:05 → OBSVTOIN 13:21 → PHEDA 13:21 → HCIN 17:05
PROVIDERS: ADMIT Hospitalist; ATTEND Hospitalist
PROC: 4A023N7 Measurement of Cardiac Sampling and Pressure, Left Heart, Percutaneous Approach (ICD-10-PCS; principal; 2017-01-01)
PROC: B2111ZZ Fluoroscopy of Multiple Coronary Arteries using Low Osmolar Contrast (ICD-10-PCS; 2017-01-01)
PROC: B41F1ZZ Fluoroscopy of Right Lower Extremity Arteries using Low Osmolar Contrast (ICD-10-PCS; 2017-01-01)
PROC: B2131ZZ Fluoroscopy of Multiple Coronary Artery Bypass Grafts using Low Osmolar Contrast (ICD-10-PCS; 2017-01-01)
PROC: B2181ZZ Fluoroscopy of Left Internal Mammary Bypass Graft using Low Osmolar Contrast (ICD-10-PCS; 2017-01-01)
DX: I25.110 Atherosclerotic heart disease of native coronary artery with unstable angina pectoris (principal); E11.65 Type 2 diabetes mellitus with hyperglycemia; I25.82 Chronic total occlusion of coronary artery; R00.1 Bradycardia, unspecified; G30.9 Alzheimer's disease, unspecified; F02.80 Dementia in other diseases classified elsewhere, unspecified severity, without behavioral disturbance, psychotic disturbance, mood disturbance, and anxiety; I10 Essential (primary) hypertension; I25.2 Old myocardial infarction; E78.5 Hyperlipidemia, unspecified; Z79.84 Long term (current) use of oral hypoglycemic drugs; Z95.1 Presence of aortocoronary bypass graft
CPT/HCPCS: 71010; 80048; 82550; 82552; 82948; 83735; 84484; 85002; 85025; 85610; 85730; 93005; 93454; 96374; C1769; C1893; J1644; J1815; J2250; J2270; J2405; J3010; J3030; Q9967

== ENCOUNTER 2017-01-15 17:31 | Emergency (ER) | payer MEDICARE, OTHER ==
[~2017-01-15] VITALS: Ht 185.4 cm; Wt 90.0 kg
[~2017-01-15 17:31] MED LIST: AMCIN.1%T TOPICAL; ASPI81CH37 CHEW; ATOR1TAB18 PO; CLOP75TA PO; DONE10TA7 PO; DULO1CAP3 PO; FERR200T PO; GABA300C5 PO; GLIP5TAB8 PO; HYDR-3580 PO; ISOS30TA3 PO; LISI-519 PO; METF1000 PO; MIRT30TA PO; NITR0.4D2 T-DERMAL; OMEP20TA PO; SITA1TAB2 PO
[2017-01-15 17:45] VITALS: BP 127/81; PULSE 67; RESP 16; TEMP 98.3; O2SAT 97
--- NOTE | 2017-01-15 17:53 | PD ---
HPI Chief Complaint: General Weakness Time Seen by Provider: 17:40 Travel History International Travel<30 days: No Contact w/Intl Traveler<30days: No Traveled to known affect area: No History of Present Illness HPI This patient complains of fatigue for 2 days. He has no energy. He's not had any chest pain or presyncopal symptoms. No vomiting or diarrhea or fever or rectal bleeding. Symptom severity is mild. No alleviating factors. PFSH Past Medical History Arthritis: Yes (OA) Depression: Yes High Cholesterol: Yes Coronary Artery Disease: Yes Dementia: Yes (Alzheimer's) Diabetes: Yes Myocardial Infarction: Yes Sleep Apnea: Yes (ALEKSEY) Triglycerides - High: Yes Past Surgical History Appendectomy: Yes Coronary Artery Bypass Graft: Yes Eye Surgery: Yes (Left) Social History Alcohol Use: No Tobacco Use: No Substance Use: No Allergies-Medications (Allergen,Severity, Reaction): Coded Allergies: No Known Allergies (Unverified , 01/15/17) Reported Meds & Prescriptions Reported Meds & Active Scripts Active Isosorbide Mononitrate ER (Isosorbide Mononitrate) 30 Mg Rakesh 30 Mg PO DAILY@07 Reported Feosol (Ferrous Sulfate) 200 Mg Tab 200 Mg PO DAILY Hydrocodone-Acetaminophen 7.5-325 mg Tab 1 Tab PO TID PRN Mirtazapine 30 Mg Tab 30 Mg PO HS Atorvastatin (Atorvastatin Calcium) 80 Mg Tab 80 Mg PO HS Metformin (Metformin HCl) 1,000 Mg Tab 1,000 Mg PO BIDPC With meals Glipizide 5 Mg Tab 7.5 Mg PO BIDAC Take 30 minutes before a meal Donepezil 10 Mg Tab 10 Mg PO HS Januvia (Sitagliptin Phosphate) 100 Mg Tab 100 Mg PO DAILY Duloxetine DR (Duloxetine HCl) 60 Mg Capdr 60 Mg PO DAILY Gabapentin 300 Mg Cap 300 Mg PO TID Nitroglycerin Patch 24 HR (Nitroglycerin) 0.4 Mg/Hr Patch 0.4 Mg T-DERMAL DAILY PRN Lisinopril 5 Mg Tab 5 Mg PO DAILY Clopidogrel (Clopidogrel Bisulfate) 75 Mg Tab 75 Mg PO DAILY Aspirin Low Dose (Aspirin) 81 Mg Chew 81 Mg CHEW DAILY Omeprazole 20 Mg Tab 20 Mg PO BID Amcinonide Topical (Amcinonide) 0.1% Cream 1 Applic TOPICAL BID Apply a thin film to affected area(s) Review of Systems General / Constitutional: No: Fever Eyes: No: Visual changes HENT: Positive: Rhinorrhea, Congestion, No: Headaches Cardiovascular: No: Chest Pain or Discomfort Respiratory: No: Shortness of Breath Gastrointestinal: No: Abdominal Pain Genitourinary: No: Dysuria Musculoskeletal: No: Pain Skin: No Rash Neurologic: No: Weakness Psychiatric: No: Depression Endocrine: No: Polydipsia Hematologic/Lymphatic: No: Easy Bruising Physical Exam Narrative GENERAL: Well-nourished, well-developed patient in no apparent distress. SKIN: Warm and dry. HEAD: Atraumatic. Normocephalic. EYES: Pupils equal and round. No scleral icterus. No injection or drainage. ENT: No nasal bleeding or discharge. Mucous membranes pink and moist. Clear rhinorrhea NECK: Trachea midline. No JVD. CARDIOVASCULAR: Regular rate and rhythm. No murmur appreciated. RESPIRATORY: No accessory muscle use. Clear to auscultation. Breath sounds equal bilaterally. GASTROINTESTINAL: Abdomen soft, non-tender, nondistended. Hepatic and splenic margins not palpable. MUSCULOSKELETAL: No obvious deformities. No clubbing. No cyanosis. No edema. NEUROLOGICAL: Awake and alert. No obvious cranial nerve deficits. Motor grossly within normal limits. Normal speech. PSYCHIATRIC: Appropriate mood and affect; insight and judgment normal. Data Data Last Documented VS Vital Signs Date Time Temp Pulse Resp B/P Pulse Ox O2 Delivery O2 Flow Rate FiO2 01/15/17 17:45 98.3 67 16 127/81 97 Orders Complete Blood Count With Diff (01/15/17 17:48) Basic Metabolic Panel (Bmp) (01/15/17 17:48) Iv Access Insert/Monitor (01/15/17 17:48) Electrocardiogram (01/15/17 ) Urinalysis - C+S If Indicated (01/15/17 17:53) Labs Laboratory Tests Test 01/15/17 18:30 White Blood Count 7.8 TH/MM3 Red Blood Count 5.29 MIL/MM3 Hemoglobin 12.9 GM/DL Hematocrit 40.2 % Mean Corpuscular Volume 76.0 FL Mean Corpuscular Hemoglobin 24.5 PG Mean Corpuscular Hemoglobin 32.2 % Concent Red Cell Distribution Width 16.5 % Platelet Count 217 TH/MM3 Mean Platelet Volume 9.0 FL Neutrophils (%) (Auto) 59.0 % Lymphocytes (%) (Auto) 30.8 % Monocytes (%) (Auto) 7.9 % Eosinophils (%) (Auto) 1.5 % Basophils (%) (Auto) 0.8 % Neutrophils # (Auto) 4.6 TH/MM3 Lymphocytes # (Auto) 2.4 TH/MM3 Monocytes # (Auto) 0.6 TH/MM3 Eosinophils # (Auto) 0.1 TH/MM3 Basophils # (Auto) 0.1 TH/MM3 CBC Comment AUTO DIFF MDM Medical Decision Making Medical Screen Exam Complete: Yes Emergency Medical Condition: Yes Medical Record Reviewed: Yes Differential Diagnosis Flu syndrome, fatigue syndrome, malaise Narrative Course Flu syndrome, anemia, renal failure IV placed CBC is normal The rest of the workup is pending however Case will be checked out to Dr. Watt to disposition I suspect he'll be stable for outpatient follow-up Critical Care Narrative I have reviewed the patient's electronic medical record. Patient was hospitalized 2 weeks ago for cardiac evaluation. He had a heart catheterization with no significant coronary blockage IV placed CBC Metabolic profile Urinalysis I reviewed his EKG Patient's vital signs are normal and his exam is benign other than findings suggesting viral URI Possibly has a flu-type syndrome No clinical suspicion of ACS Chip Thakur MD Jan 15, 2017 17:52
[2017-01-15 18:46] LABS: AUTOMATED NEUTROPHIL # 4.6 TH/MM3 (1.8-7.7); BASOPHIL # 0.1 TH/MM3 (0-0.2); BASOPHIL % 0.8 % (0.0-2.0); EOSINOPHIL # 0.1 TH/MM3 (0-0.4); EOSINOPHIL % 1.5 % (0.0-4.0); HEMATOCRIT 40.2 % (39.0-51.0); LYMPH % 30.8 % (9.0-44.0); LYMPHOCYTE # 2.4 TH/MM3 (1.0-4.8); MEAN CORPUSCULAR HEMOGLOBIN 24.5 PG (27.0-34.0); MEAN CORPUSCULAR HGB CONC 32.2 % (32.0-36.0); MONO % 7.9 % (0.0-8.0); PLATELET COUNT 217 TH/MM3 (150-450); RED BLOOD COUNT 5.29 MIL/MM3 (4.50-5.90); RED CELL DISTRIBUTION WIDTH 16.5 % (11.6-17.2); WHITE BLOOD COUNT 7.8 TH/MM3 (4.0-11.0)
[2017-01-15 18:48] LABS: HEMO FLAGS AUTO DIFF
[2017-01-15 19:15] VITALS: BP 123/82; PULSE 73; RESP 20; O2SAT 96
[2017-01-15 19:23] LABS: BICARBONATE 24.2 MEQ/L (21.0-32.0); POTASSIUM 3.9 MEQ/L (3.5-5.1)
[2017-01-15 19:25] LABS: PLATELET ESTIMATE SMEAR NORMAL (NORMAL); PLATELET MORPHOLOGY NORMAL (NORMAL); SCAN/DIFF AUTO DIFF CONFIRMED
[2017-01-15 19:50] LABS: BACTERIA, URINE OCC /hpf; BLOOD, URINE NEG (NEG); GLUCOSE,URINE 1000 mg/dL (NEG); KETONE, URINE 10 mg/dL (NEG); MUCUS URINE FEW /lpf (OCC); NITRITE,URINE NEG (NEG); SQUAMOUS EPITHELIAL CELL URINE 1 /hpf (0-5); URINE COLOR YELLOW (YELLW/STRAW)
[2017-01-15 19:52] LABS: COMMENT (UR) CULTURE INDICATED; CULTURE IF INDICATED CULTURE INDICATED
[2017-01-15] MEDS ORDERED: BACT800T5 PO (20:37)
--- NOTE | 2017-01-15 20:37 | PD ---
Data Data Last Documented VS Vital Signs Date Time Temp Pulse Resp B/P Pulse Ox O2 Delivery O2 Flow Rate FiO2 01/15/17 19:15 73 20 123/82 96 Room Air 01/15/17 17:45 98.3 Orders Complete Blood Count With Diff (01/15/17 17:48) Basic Metabolic Panel (Bmp) (01/15/17 17:48) Iv Access Insert/Monitor (01/15/17 17:48) Electrocardiogram (01/15/17 ) Urinalysis - C+S If Indicated (01/15/17 17:53) Urine Culture (01/15/17 19:00) Sulfamet-Trimeth Ds 800-160 Mg (Bactrim (01/15/17 21:15) Labs Laboratory Tests Test 01/15/17 01/15/17 18:30 19:00 White Blood Count 7.8 TH/MM3 Red Blood Count 5.29 MIL/MM3 Hemoglobin 12.9 GM/DL Hematocrit 40.2 % Mean Corpuscular Volume 76.0 FL Mean Corpuscular Hemoglobin 24.5 PG Mean Corpuscular Hemoglobin 32.2 % Concent Red Cell Distribution Width 16.5 % Platelet Count 217 TH/MM3 Mean Platelet Volume 9.0 FL Neutrophils (%) (Auto) 59.0 % Lymphocytes (%) (Auto) 30.8 % Monocytes (%) (Auto) 7.9 % Eosinophils (%) (Auto) 1.5 % Basophils (%) (Auto) 0.8 % Neutrophils # (Auto) 4.6 TH/MM3 Lymphocytes # (Auto) 2.4 TH/MM3 Monocytes # (Auto) 0.6 TH/MM3 Eosinophils # (Auto) 0.1 TH/MM3 Basophils # (Auto) 0.1 TH/MM3 CBC Comment AUTO DIFF Differential Comment AUTO DIFF CONFIRMED Platelet Estimate NORMAL Platelet Morphology Comment NORMAL Red Cell Morphology Comment NORMAL Sodium Level 135 MEQ/L Potassium Level 3.9 MEQ/L Chloride Level 98 MEQ/L Carbon Dioxide Level 24.2 MEQ/L Anion Gap 13 MEQ/L Blood Urea Nitrogen 20 MG/DL Creatinine 1.07 MG/DL Estimat Glomerular Filtration 68 ML/MIN Rate Random Glucose 286 MG/DL Calcium Level 9.5 MG/DL Urine Color YELLOW Urine Turbidity CLEAR Urine pH 5.0 Urine Specific [place] 1.036 Urine Protein NEG mg/dL Urine Glucose (UA) 1000 mg/dL Urine Ketones 10 mg/dL Urine Occult Blood NEG Urine Nitrite NEG Urine Bilirubin NEG Urine Urobilinogen LESS THAN 2.0 MG/DL Urine Leukocyte Esterase MOD Urine RBC 6 /hpf Urine WBC 17 /hpf Urine Squamous Epithelial 1 /hpf Cells Urine Bacteria OCC /hpf Urine Mucus FEW /lpf Microscopic Urinalysis Comment CULTURE INDICATED MDM Medical Record Reviewed: Yes Supervised Visit with JAY: No Narrative Course Please refer to the outgoing provider's note. Today's workup reveals the following: CBC & BMP Diagram 01/15/17 18:30 Urinalysis reveals glucosuria hematuria possible UTI EKG shows a sinus rhythm rate [address] abnormalities in the lateral precordial leads Cardiac cath from a few days prior revealed no occlusive coronary disease. The patient shall be discharged with antibiotics for UTI. Diagnosis Primary Impression: Malaise and fatigue Additional Impressions: Cystitis Hyperglycemia Referrals: DR KAUR 2 days Additional Instruction: You have a choice when it comes to health care, and we are glad that you chose [facility]. Hopefully, we have met your expectations on today's visit. You are welcome to return to [facility] at any time, as we are committed to meeting the health care needs of our community. Med/Other Pt SpecificInfo: Prescription(s) given Scripts Sulfamethoxazole-Trimethoprim (Bactrim DS)800-160 Mg Tab1 Tab PO BID #14 TAB Ref 0 Prov:Ludwin Watt MD 01/15/17 Disposition: 01 DISCHARGE HOME Condition: Stable Ludwin Watt MD Jan 15, 2017 20:37
[2017-01-15] MEDS ORDERED: SULFAMETHOXAZOLE-TRIMETHOPRIM DS 800-160 MG TAB PO ONE (21:15)
[2017-01-15 21:23] VITALS: BP 121/79; PULSE 91; RESP 18; O2SAT 95
--- NOTE | 2017-01-16 14:49 | EKG ---
Date Performed: 01/15/2017 Time Performed: 19:10:15 PTAGE: 71 years EKG: Sinus rhythm WITH SHORT LA INTERVAL ST DEVIATION AND MODERATE T-WAVE ABNORMALITY, CONSIDER LATERAL ISCHEMIA ABNOR MAL ECG INTERPRETATION BASED ON A DEFAULT AGE OF 39 YEARS PREVIOUS TRACING : 01/01/2017 02.19 DOCTOR: Basil Monreal Interpretating Date/Time 01/16/2017 14:46:56
== END 2017-01-15 22:02 | disposition home or self-care (01) ==
LOC: NEPE 17:31
DX: R53.83 Other fatigue (principal); R53.81 Other malaise; N30.90 Cystitis, unspecified without hematuria; E11.65 Type 2 diabetes mellitus with hyperglycemia; R94.31 Abnormal electrocardiogram [ECG] [EKG]; B96.89 Other specified bacterial agents as the cause of diseases classified elsewhere; I25.10 Atherosclerotic heart disease of native coronary artery without angina pectoris; G30.9 Alzheimer's disease, unspecified; Z95.1 Presence of aortocoronary bypass graft; Z79.84 Long term (current) use of oral hypoglycemic drugs
CPT/HCPCS: 80048; 81001; 85025; 87086; 93005

== ENCOUNTER 2017-04-23 19:46 | Observation (INO) | payer OTHER ==
[~2017-04-23] VITALS: Ht 185.4 cm; Wt 90.4 kg
[~2017-04-23 19:46] MED LIST changes: +BACT800T5 PO
[2017-04-23 19:52] VITALS: BP 122/78; PULSE 85; RESP 20; TEMP 98.3; O2SAT 98
[2017-04-23] MEDS ORDERED: SODIUM CHLOR 0.9% 1000 ML INJ 1,000 ML IV ONE (20:12)
[2017-04-23] MEDS ORDERED: KETOROLAC TROMETHAMINE 30 MG/ML (IVP) VIAL IVP ONE (20:15)
[2017-04-23] MEDS ORDERED: ONDANSETRON HCL 4 MG/2 ML VIAL IVP ONE (20:15)
[2017-04-23] MEDS ORDERED: SODIUM CHLORIDE 0.9% FLUSH 10 ML FLUSH IVF PRN (20:15)
[2017-04-23] MEDS ORDERED: MORPHINE SULFATE 4 MG/ML INJ IV ONE (20:15)
--- NOTE | 2017-04-23 20:17 | PD ---
HPI Chief Complaint: Flank/Kidney Pain Time Seen by Provider: 20:12 Travel History International Travel<30 days: No Contact w/Intl Traveler<30days: No Traveled to known affect area: No History of Present Illness HPI The patient is a 71-year-old male that at approximately noon complaining of sudden onset right flank pain the patient has a history of kidney stones and this sharp pain, 7/10 is exactly like his previous history of kidney stones. He states the pain hurts in the right flank and also he can feel pain in his right testicle. He denies any swelling of the testicle or fever. He does have nausea without vomiting. PFSH Past Medical History Hx Anticoagulant Therapy: Yes (PLAVIX) Arthritis: Yes (OA) Depression: Yes Cardiovascular Problems: Yes High Cholesterol: Yes Cerebrovascular Accident: Yes Coronary Artery Disease: Yes Dementia: Yes (Alzheimer's) Diabetes: Yes Myocardial Infarction: Yes Sleep Apnea: Yes (ALEKSEY) Triglycerides - High: Yes Past Surgical History Appendectomy: Yes Coronary Artery Bypass Graft: Yes Eye Surgery: Yes (Left) Social History Alcohol Use: No Tobacco Use: No Substance Use: No Allergies-Medications (Allergen,Severity, Reaction): Coded Allergies: No Known Allergies (Unverified , 01/15/17) Reported Meds & Prescriptions Reported Meds & Active Scripts Active Zofran (Ondansetron HCl) 4 Mg Tab 4 Mg PO Q6HR PRN Lortab (Hydrocodone-Acetaminophen) 5-325 Mg Tab 1-2 Tab PO Q6H PRN Flomax (Tamsulosin HCl) 0.4 Mg Cap 0.4 Mg PO HS Cipro (Ciprofloxacin HCl) 500 Mg Tab 500 Mg PO BID 10 Days Isosorbide Mononitrate ER (Isosorbide Mononitrate) 30 Mg Rakesh 30 Mg PO DAILY@07 Reported Feosol (Ferrous Sulfate) 200 Mg Tab 200 Mg PO DAILY Hydrocodone-Acetaminophen 7.5-325 mg Tab 1 Tab PO TID PRN Mirtazapine 30 Mg Tab 30 Mg PO HS Atorvastatin (Atorvastatin Calcium) 80 Mg Tab 80 Mg PO HS Metformin (Metformin HCl) 1,000 Mg Tab 1,000 Mg PO BIDPC With meals Glipizide 5 Mg Tab 7.5 Mg PO BIDAC Take 30 minutes before a meal Donepezil 10 Mg Tab 10 Mg PO HS Januvia (Sitagliptin Phosphate) 100 Mg Tab 100 Mg PO DAILY Duloxetine DR (Duloxetine HCl) 60 Mg Capdr 60 Mg PO DAILY Gabapentin 300 Mg Cap 300 Mg PO TID Lisinopril 5 Mg Tab 5 Mg PO DAILY Clopidogrel (Clopidogrel Bisulfate) 75 Mg Tab 75 Mg PO DAILY Aspirin Low Dose (Aspirin) 81 Mg Chew 81 Mg CHEW DAILY Omeprazole 20 Mg Tab 20 Mg PO BID Amcinonide Topical (Amcinonide) 0.1% Cream 1 Applic TOPICAL BID Apply a thin film to affected area(s) Review of Systems Except as stated in HPI: all other systems reviewed are Neg Physical Exam Narrative GENERAL: The patient is alert, oriented 3 in moderate apparent distress with his right flank pain. His vital signs are normal. SKIN: Focused skin assessment warm/dry. HEAD: Atraumatic. Normocephalic. EYES: Pupils equal and round. No scleral icterus. No injection or drainage. ENT: No nasal bleeding or discharge. Mucous membranes pink and moist. NECK: Trachea midline. No JVD. CARDIOVASCULAR: Regular rate and rhythm. No murmur appreciated. RESPIRATORY: No accessory muscle use. Clear to auscultation. Breath sounds equal bilaterally. GASTROINTESTINAL: Abdomen soft, with tenderness to direct palpation in the right UVJ area, nondistended. Hepatic and splenic margins not palpable. No guarding or rebound is present. MUSCULOSKELETAL: No obvious deformities. No clubbing. No cyanosis. No edema. NEUROLOGICAL: Awake and alert. No obvious cranial nerve deficits. Motor grossly within normal limits. Normal speech. PSYCHIATRIC: Appropriate mood and affect; insight and judgment normal. GENITOURINARY: Circumcised. Testes descended bilaterally without evidence of rotation. No lesions or erythema. No urethral discharge. No swelling or tenderness is present on the testicles Data Data Last Documented VS Vital Signs Date Time Temp Pulse Resp B/P Pulse Ox O2 Delivery O2 Flow Rate FiO2 04/23/17 19:52 98.3 85 20 122/78 98 Orders Complete Blood Count With Diff (04/23/17 20:12) Basic Metabolic Panel (Bmp) (04/23/17 20:12) Urinalysis - C+S If Indicated (04/23/17 20:12) Ct Abd/Pel W/O Iv Contrast (04/23/17 20:12) Ecg Monitoring (04/23/17 20:12) Iv Access Insert/Monitor (04/23/17 20:12) Ketorolac Inj (Toradol Inj) (04/23/17 20:15) Ondansetron Inj (Zofran Inj) (04/23/17 20:15) Sodium Chloride 0.9% Flush (Ns Flush) (04/23/17 20:15) Sodium Chlor 0.9% 1000 Ml Inj (Ns 1000 M (04/23/17 20:12) Morphine Inj (Morphine Inj) (04/23/17 20:30) Urine Culture (04/23/17 20:49) Ciprofloxacin (Cipro) (04/23/17 21:30) Tamsulosin (Flomax) (04/23/17 21:30) Insulin Human Regular Inj (Novolin R Inj (04/23/17 21:30) Labs Laboratory Tests Test 04/23/17 04/23/17 20:10 20:49 White Blood Count 8.8 TH/MM3 Red Blood Count 5.09 MIL/MM3 Hemoglobin 12.3 GM/DL Hematocrit 37.5 % Mean Corpuscular Volume 73.7 FL Mean Corpuscular Hemoglobin 24.2 PG Mean Corpuscular Hemoglobin 32.8 % Concent Red Cell Distribution Width 15.7 % Platelet Count 221 TH/MM3 Mean Platelet Volume 8.9 FL Neutrophils (%) (Auto) 71.6 % Lymphocytes (%) (Auto) 20.1 % Monocytes (%) (Auto) 6.4 % Eosinophils (%) (Auto) 1.3 % Basophils (%) (Auto) 0.6 % Neutrophils # (Auto) 6.2 TH/MM3 Lymphocytes # (Auto) 1.8 TH/MM3 Monocytes # (Auto) 0.6 TH/MM3 Eosinophils # (Auto) 0.1 TH/MM3 Basophils # (Auto) 0.1 TH/MM3 CBC Comment AUTO DIFF Differential Comment AUTO DIFF CONFIRMED Tear Drop Cells 1+ Ovalocytes 1+ Sodium Level 135 MEQ/L Potassium Level 4.3 MEQ/L Chloride Level 99 MEQ/L Carbon Dioxide Level 23.6 MEQ/L Anion Gap 12 MEQ/L Blood Urea Nitrogen 26 MG/DL Creatinine 1.20 MG/DL Estimat Glomerular Filtration 60 ML/MIN Rate Random Glucose 462 MG/DL Calcium Level 8.7 MG/DL Urine Color YELLOW Urine Turbidity CLEAR Urine pH 5.5 Urine Specific [place] GREATER THAN 1.035 Urine Protein NEG mg/dL Urine Glucose (UA) 1000 OR GREATER mg/dL Urine Ketones NEG mg/dL Urine Occult Blood MOD Urine Nitrite NEG Urine Bilirubin NEG Urine Leukocyte Esterase TRACE Urine RBC 10-14 /hpf Urine WBC 9-14 /hpf Urine WBC Clumps FEW Urine Squamous Epithelial 0-5 /hpf Cells Microscopic Urinalysis Comment CULTURE INDICATED MDM Medical Decision Making Medical Screen Exam Complete: Yes Emergency Medical Condition: Yes Medical Record Reviewed: Yes Interpretation(s) The CT abdomen/pelvis without IV contrast shows a 5 mm stone at the left proximal ureter with mild dilatation of the left collecting system. Incidentally noted are bilateral nonobstructing renal stones in the collecting systems, calcified gallstones and colonic diverticula. The CBC shows a hemoglobin of 12.3 and hematocrit of 37.5 but is otherwise normal. The basic metabolic profile shows a sodium of 135 but is otherwise normal. The urine shows greater than 1.035 specific gravity, 1000 or greater glucose, trace leukocyte esterase with 10-14 red cells and 9-14 white cells and culture is indicated. Differential Diagnosis Right ureteral stone, urinary tract infection, aortic aneurysmhighly unlikely Narrative Course The patient has a fairly large, 5 mm, left ureteral stone which is causing his discomfort. Fortunately, it is only causing mild dilatation of the collecting system. He also likely has a urinary tract infection. At this point we do not think he has an infected stone. He also has diabetes mellitus poor control. The patient will be admitted 23 hours for his intractable pain and to treat the urinary tract infection as well as his diabetes mellitus poor control. Plan: The patient will need to follow-up with the urologist as soon as he can. He will be given Flomax, Lortab 5 and Cipro prescriptions. Diagnosis Primary Impression: Left ureteral calculus Additional Impressions: Intractable pain Urinary tract infection Poorly controlled diabetes mellitus Admitting Information Admitting Physician Requests: Observation Scripts Ondansetron (Zofran)4 Mg Tab4 Mg PO Q6HR PRN (NAUSEA OR VOMITING) #30 TAB Ref 0 Prov:Tucker Duarte MD 04/23/17 Hydrocodone-Acetaminophen (Lortab)5-325 Mg Tab1-2 Tab PO Q6H PRN (PAIN) #30 TAB Ref 0 Prov:Tucker Duarte MD 04/23/17 Tamsulosin (Flomax)0.4 Mg Cap0.4 Mg PO HS #30 CAP Ref 0 Prov:Tucker Duarte MD 04/23/17 Ciprofloxacin (Cipro)500 Mg Mgv912 Mg PO BID 10 Days Ref 0 Prov:Tucker Duarte MD 04/23/17 Tucker Duarte MD Apr 23, 2017 20:16
[2017-04-23] MEDS ORDERED: MORPHINE SULFATE 8 MG/ML INJ IV PUSH ONE (20:30)
[2017-04-23 20:33] LABS: AUTOMATED NEUTROPHIL # 6.2 TH/MM3 (1.8-7.7); BASOPHIL # 0.1 TH/MM3 (0-0.2); BASOPHIL % 0.6 % (0.0-2.0); EOSINOPHIL # 0.1 TH/MM3 (0-0.4); EOSINOPHIL % 1.3 % (0.0-4.0); HEMATOCRIT 37.5 % (39.0-51.0); LYMPH % 20.1 % (9.0-44.0); LYMPHOCYTE # 1.8 TH/MM3 (1.0-4.8); MEAN CELL VOLUME 73.7 FL (80.0-100.0); MEAN CORPUSCULAR HEMOGLOBIN 24.2 PG (27.0-34.0); MEAN CORPUSCULAR HGB CONC 32.8 % (32.0-36.0); MONO % 6.4 % (0.0-8.0); NEUT % 71.6 % (16.0-70.0); PLATELET COUNT 221 TH/MM3 (150-450); RED BLOOD COUNT 5.09 MIL/MM3 (4.50-5.90); RED CELL DISTRIBUTION WIDTH 15.7 % (11.6-17.2); WHITE BLOOD COUNT 8.8 TH/MM3 (4.0-11.0)
[2017-04-23 20:51] LABS: HEMO FLAGS AUTO DIFF
[2017-04-23 21:02] LABS: POTASSIUM 4.3 MEQ/L (3.5-5.1)
--- NOTE | 2017-04-23 21:04 | RADRPT ---
EXAM DATE/TIME: 04/23/2017 20:26 [facility] COMPARISON: No previous studies available for comparison. INDICATIONS : Right flank pain. ORAL CONTRAST: None RADIATION DOSE: 24.27 CTDIvol (mGy) MEDICAL HISTORY : Cardiovascular disease. Diabetes mellitus type 2. Hypercholesterolemia.Dementia SURGICAL HISTORY : CABG Discectomy, lumbar.Neuro stimulator ENCOUNTER: Initial ACUITY: 1 day PAIN SCALE: 6/10 LOCATION: Right flank TECHNIQUE: Volumetric scanning of the abdomen and pelvis was performed. Using automated exposure control and ad justment of the mA and/or kV according to patient size, radiation dose was kept as low as reasonably achievable to obtain optimal diagnostic quality images. DICOM format image data is available electro nically for review and comparison. FINDINGS: LOWER LUNGS: The visualized lower lungs are clear. LIVER: Homogeneous density without lesion. There is a calcification at the dome of the right lobe of the li brandon or the right hemidiaphragm. There is no dilation of the biliary tree. Calcified gallstones are se en. SPLEEN: Normal size without lesion. PANCREAS: Within normal limits. KIDNEYS: There is a 5 mm stone seen in the left proximal ureter. There is mild dilatation of the left collecti ng system. There is a 0.8 cm and 0.2 cm nonobstructing stone seen in the upper right collecting syste m. There is a 3 mm and 2 mm nonobstructing stone seen at the left kidney. ADRENAL GLANDS: Within normal limits. VASCULAR: There is no aortic aneurysm. Arterial calcifications are seen. BOWEL/MESENTERY: Colonic diverticula are seen. ABDOMINAL WALL: Within normal limits. RETROPERITONEUM: There is no lymphadenopathy. BLADDER: No wall thickening or mass. REPRODUCTIVE: Within normal limits. INGUINAL: There is no lymphadenopathy or hernia. MUSCULOSKELETAL: Within normal limits for patient age. There is an electronic device seen of the left gluteal region w ith leads extending into the spinal canal. CONCLUSION: 1. 5 mm stone at the left proximal ureter with mild dilatation of the left collecting system. 2. Bilateral nonobstructing renal stones in the collecting systems. 3. Calcified gallstones. 4. Colonic diverticula. Joey Floyd MD on April 23, 2017 at 20:55 Board Certified Radiologist. This report was verified electronically.
[2017-04-23 21:05] LABS: KETONE, URINE NEG (NEG); NITRITE,URINE NEG (NEG); PH, URINE 5.5 (5.0-8.5)
[2017-04-23 21:06] LABS: BICARBONATE 23.6 MEQ/L (21.0-32.0)
[2017-04-23 21:08] LABS: BLOOD, URINE MOD (NEG); GLUCOSE,URINE 1000 OR GREATER mg/dL (NEG)
[2017-04-23 21:09] LABS: URINE COLOR YELLOW (YELLW/STRAW)
[2017-04-23 21:11] LABS: COMMENT (UR) CULTURE INDICATED; CULTURE IF INDICATED CULTURE INDICATED; SQUAMOUS EPITHELIAL CELL URINE 0-5 /hpf (0-5)
[2017-04-23] MEDS ORDERED: TAMS5CAP PO (21:20)
[2017-04-23] MEDS ORDERED: HYDR-3533 PO (21:20)
[2017-04-23] MEDS ORDERED: CIPR-9 PO (21:20)
[2017-04-23] MEDS ORDERED: ZOFR4TAB PO (21:24)
[2017-04-23] MEDS ORDERED: TAMSULOSIN HCL 0.4 MG CAP PO ONE (21:30)
[2017-04-23] MEDS ORDERED: INSULIN HUMAN REGULAR 1,000 UNITS/10 ML VIAL IV PUSH ONE (21:30)
[2017-04-23] MEDS ORDERED: CIPROFLOXACIN 500 MG TAB PO ONE (21:30)
[2017-04-23 21:44] LABS: OVALOCYTES 1+ (NORMAL); SCAN/DIFF AUTO DIFF CONFIRMED; TEARDROP RBCS 1+ (NORMAL)
[2017-04-23] MEDS ORDERED: ONDANSETRON HCL 4 MG/2 ML VIAL IV ONE (21:45)
[2017-04-23] MEDS ORDERED: HYDROmorphone HCL PF 1 MG/ML VIAL IVP ONE (21:45)
[2017-04-23] MEDS ORDERED: SUCCINYLCHOLINE CHLORIDE 200 MG/10 ML VIAL ONE (21:56)
[2017-04-23] MEDS ORDERED: cefTRIAXone INJ 1,000 MG in SODIUM CHLORIDE 0.9% INJ 100 ML IV ONE (22:00)
[2017-04-23] MEDS ORDERED: ONDANSETRON HCL 4 MG/2 ML VIAL IVP PRN (22:00)
[2017-04-23] MEDS ORDERED: BISACODYL 10 MG SUPP RECTAL PRN (22:00)
[2017-04-23] MEDS ORDERED: MORPHINE SULFATE 4 MG/ML INJ IV PRN (22:00)
[2017-04-23] MEDS ORDERED: LACTULOSE SYRUP 20 GM/30 ML CUP PO PRN (22:00)
[2017-04-23] MEDS ORDERED: GLUCAGON 1 MG/ML VIAL OTHER PRN (22:00)
[2017-04-23] MEDS ORDERED: ACETAMINOPHEN 325 MG TAB PO PRN (22:00)
[2017-04-23] MEDS ORDERED: MAGNESIUM HYDROXIDE SUSP 30 ML CUP PO PRN (22:00)
[2017-04-23] MEDS ORDERED: SENNOSIDES 8.6 MG TAB PO PRN (22:00)
[2017-04-23] MEDS ORDERED: SODIUM CHLORIDE 0.9% FLUSH 10 ML FLUSH IV FLUSH PRN (22:00)
[2017-04-23] MEDS ORDERED: DEXTROSE 50% IN WATER 50 ML VIAL(D50) IV PRN (22:00)
[2017-04-23] MEDS: SODIUM CHLOR 0.9% 1000 ML INJ 1,000 ML IV SCH (22:16)
[2017-04-23 22:36] VITALS: BP 110/72; PULSE 84; RESP 16; O2SAT 99
[2017-04-24] MEDS: MORPHINE SULFATE 8 MG/ML INJ IV PUSH PRN ×2 (00:30→20:15)
[2017-04-24] MEDS: ACETAMINOPHEN/HYDROcodone 325 MG/5 MG TAB PO PRN ×4 (00:51→17:05)
[2017-04-24 01:20] VITALS: BP 115/79; PULSE 68; RESP 20; TEMP 98.1; O2SAT 94
[2017-04-24] MEDS: ISOSORBIDE MONONITRATE 30 MG TAB PO SCH (06:04)
[2017-04-24] MEDS ORDERED: glipiZIDE 5 MG TAB PO SCH (07:00)
[2017-04-24 07:37] LABS: AUTOMATED NEUTROPHIL # 4.7 TH/MM3 (1.8-7.7); BASOPHIL % 0.1 % (0.0-2.0); EOSINOPHIL # 0.1 TH/MM3 (0-0.4); EOSINOPHIL % 1.5 % (0.0-4.0); HEMATOCRIT 35.4 % (39.0-51.0); HEMO FLAGS AUTO DIFF; LYMPH % 27.5 % (9.0-44.0); MEAN CORPUSCULAR HEMOGLOBIN 23.1 PG (27.0-34.0); MEAN CORPUSCULAR HGB CONC 30.8 % (32.0-36.0); MONO % 7.7 % (0.0-8.0); NEUT % 63.2 % (16.0-70.0); PLATELET COUNT 178 TH/MM3 (150-450); RED BLOOD COUNT 4.72 MIL/MM3 (4.50-5.90); RED CELL DISTRIBUTION WIDTH 15.9 % (11.6-17.2); WHITE BLOOD COUNT 7.4 TH/MM3 (4.0-11.0)
[2017-04-24 07:52] LABS: CHLORIDE 105 MEQ/L (98-107); POTASSIUM 4.8 MEQ/L (3.5-5.1); SODIUM (NA) 140 MEQ/L (136-145)
[2017-04-24 07:54] VITALS: BP 111/80; PULSE 84; RESP 16; TEMP 96.5; O2SAT 93
[2017-04-24 07:56] LABS: ANION GAP 8 MEQ/L (5-15); BICARBONATE 26.9 MEQ/L (21.0-32.0)
[2017-04-24 08:09] LABS: ALKALINE PHOSPHATASE 76 U/L (45-117); ALT (GPT) 31 U/L (12-78); AST (GOT) 19 U/L (15-37); BLOOD UREA NITROGEN 23 MG/DL (7-18); GLOMERULAR FILTRATION RATE 91 ML/MIN (>89); TOTAL BILIRUBIN ADULT 0.5 MG/DL (0.2-1.0)
[2017-04-24] MEDS: INSULIN ASPART SUPPLEMENTAL SCALE SQ SCH ×4 (08:17→21:00)
[2017-04-24] MEDS: SODIUM CHLOR 0.9% 1000 ML INJ 1,000 ML IV SCH ×2 (08:19→17:05)
[2017-04-24] MEDS: FERROUS SULFATE 325 MG (65 MG ELEMENTAL IRON) TAB PO SCH (08:19)
[2017-04-24] MEDS: PANTOPRAZOLE SOD 20 MG DELAYED RELEASE TAB PO SCH ×2 (08:19→20:16)
[2017-04-24] MEDS: GABAPENTIN 300 MG CAP PO SCH ×3 (08:20→17:06)
[2017-04-24] MEDS: DULoxetine HCl DR 60 MG CAP PO SCH (08:20)
[2017-04-24] MEDS: glipiZIDE 5 MG TAB PO SCH ×2 (08:20→17:06)
[2017-04-24] MEDS: SODIUM CHLORIDE 0.9% FLUSH 10 ML FLUSH IV FLUSH SCH ×2 (08:21→20:23)
[2017-04-24] MEDS: DOCUSATE SODIUM 50 MG/SENNA 8.6 MG TAB PO SCH ×2 (08:22→20:16)
[2017-04-24 08:38] LABS: OVALOCYTES 1+ (NORMAL); SCAN/DIFF AUTO DIFF CONFIRMED
--- NOTE | 2017-04-24 08:53 | HHI.HP ---
[facility] Service [facility] Primary Care Physician Juan Toussaint MD Admission Diagnosis left ureteral stone with intractable pain, UTI, DM poor control Diagnoses: Chief Complaint: Bilateral flank pain Travel History International Travel<30 Days: No Contact w/Intl Traveler <30 Da: No Traveled to Known Affected Are: No History of Present Illness Patient is a 71-year-old gentleman with a known history of nephrolithiasis and diabetes. He came to the emergency room with 1 day right sided flank pain and with some urinary urgency and dysuria. Patient says that he feels the pain radiated into his testicle and has come to the emergency room for further evaluation. He says this is quite similar to previous episodes of his recurrent nephrolithiasis although it hasn't happened in some time and he has not seen a urologist in some time. Patient at this time and had an imaging studies which confirmed a right 5 mm stone in the collecting system. Patient has been recommended for observation and for further evaluation and treatment. His pain is improved with hydrocodone. Patient also appears to have urinary tract infection and is poorly controlled diabetes Review of Systems Constitutional: DENIES: Diaphoretic episodes, Fatigue, Fever, Weight gain, Weight loss, Chills, Dizziness, Change in appetite, Night Sweats Endocrine: DENIES: Heat/cold intolerance, Polydipsia, Polyuria, Polyphagia Eyes: DENIES: Blurred vision, Diplopia, Eye inflammation, Eye pain, Vision loss , Photosensitivity, Double Vision Ears, nose, mouth, throat: DENIES: Tinnitus, Hearing loss, Vertigo, Nasal discharge, Oral lesions, Throat pain, Hoarseness, Ear Pain, Running Nose, Epistaxis, Sinus Pain, Toothache, Odynophagia Respiratory: DENIES: Apneas, Cough, Snoring, Wheezing, Hemoptysis, Sputum production, Shortness of breath Cardiovascular: DENIES: Chest pain, Palpitations, Syncope, Dyspnea on Exertion , PND, Lower Extremity Edema, Orthopnea, Claudication Gastrointestinal: COMPLAINS OF: Abdominal pain, DENIES: Black stools, Bloody stools, Constipation, Diarrhea, Nausea, Vomiting, Difficulty Swallowing, Anorexia Genitourinary: COMPLAINS OF: Urgency, Testicular Pain, DENIES: Sexual dysfunction, Urinary frequency, Urinary incontinence, Hematuria, Dysuria, Nocturia, Penile Discharge, Testicular Swelling Musculoskeletal: DENIES: Joint pain, Muscle aches, Stiffness, Joint Swelling, Back pain, Neck pain Integumentary: DENIES: Abnormal pigmentation, Nail changes, Pruritus, Rash Hematologic/lymphatic: DENIES: Bruising, Lymphadenopathy Immunologic/allergic: DENIES: Eczema, Urticaria Neurologic: DENIES: Abnormal gait, Headache, Localized weakness, Paresthesias, Seizures, Speech Problems, Tremor, Poor Balance Psychiatric: DENIES: Anxiety, Confusion, Mood changes, Depression, Hallucinations, Agitation, Suicidal Ideation, Homicidal Ideation, Delusions Past Family Social History Past Medical History Diabetes Coronary artery disease, nephrolithiasis Alzheimer's Diabetic nephropathy Past Surgical History Cardiac bypass Appendectomy Eye surgery Back surgery Orthopedic surgeries Reported Medications Reviewed in the medical record Allergies: Coded Allergies: No Known Allergies (Unverified , 01/15/17) Active Ordered Medications Reviewed in the medical record Family History Father had heart failure, mother had coronary disease and Alzheimer's Social History No tobacco or alcohol dependency, from [place], Physical Exam Vital Signs Vital Signs Date Time Temp Pulse Resp B/P Pulse Ox O2 Delivery O2 Flow Rate FiO2 04/24/17 07:54 96.5 84 16 111/80 93 04/24/17 04:39 04/24/17 01:20 98.1 68 20 115/79 94 04/23/17 22:36 84 16 110/72 99 Room Air 04/23/17 19:52 98.3 85 20 122/78 98 Physical Exam GENERAL: This is a well-nourished, well-developed patient, in no apparent distress. SKIN: No rashes, ecchymoses or lesions. Cool and dry. HEAD: Atraumatic. Normocephalic. No temporal or scalp tenderness. EYES: Pupils equal round and reactive. Extraocular motions intact. No scleral icterus. No injection or drainage. ENT: Nose without bleeding, purulent drainage or septal hematoma. Throat without erythema, tonsillar hypertrophy or exudate. Uvula midline. Airway patent. NECK: Trachea midline. No JVD or lymphadenopathy. Supple, nontender, no meningeal signs. CARDIOVASCULAR: Regular rate and rhythm without murmurs, gallops, or rubs. RESPIRATORY: Clear to auscultation. Breath sounds equal bilaterally. No wheezes , rales, or rhonchi. GASTROINTESTINAL: Abdomen soft, non-tender, nondistended. No hepato-splenomegaly , or palpable masses. No guarding. MUSCULOSKELETAL: left flank pain, Extremities without clubbing, cyanosis, or edema. No joint tenderness, effusion, or edema noted. No calf tenderness. Negative Homans sign bilaterally. NEUROLOGICAL: Awake and alert. hard of hearing. Motor and sensory grossly within normal limits. Five out of 5 muscle strength in all muscle groups. Normal speech. Laboratory Laboratory Tests Test 04/23/17 04/23/17 04/24/17 20:10 20:49 06:15 White Blood Count 8.8 7.4 Red Blood Count 5.09 4.72 Hemoglobin 12.3 10.9 Hematocrit 37.5 35.4 Mean Corpuscular Volume 73.7 75.0 Mean Corpuscular Hemoglobin 24.2 23.1 Mean Corpuscular Hemoglobin 32.8 30.8 Concent Red Cell Distribution Width 15.7 15.9 Platelet Count 221 178 Mean Platelet Volume 8.9 9.2 Neutrophils (%) (Auto) 71.6 63.2 Lymphocytes (%) (Auto) 20.1 27.5 Monocytes (%) (Auto) 6.4 7.7 Eosinophils (%) (Auto) 1.3 1.5 Basophils (%) (Auto) 0.6 0.1 Neutrophils # (Auto) 6.2 4.7 Lymphocytes # (Auto) 1.8 2.0 Monocytes # (Auto) 0.6 0.6 Eosinophils # (Auto) 0.1 0.1 Basophils # (Auto) 0.1 0.0 CBC Comment AUTO DIFF AUTO DIFF Differential Comment AUTO DIFF AUTO DIFF CONFIRMED CONFIRMED Tear Drop Cells 1+ Ovalocytes 1+ 1+ Sodium Level 135 140 Potassium Level 4.3 4.8 Chloride Level 99 105 Carbon Dioxide Level 23.6 26.9 Anion Gap 12 8 Blood Urea Nitrogen 26 23 Creatinine 1.20 0.83 Estimat Glomerular Filtration 60 91 Rate Random Glucose 462 290 Calcium Level 8.7 8.3 Urine Color YELLOW Urine Turbidity CLEAR Urine pH 5.5 Urine Specific [place] GREATER THAN 1.035 Urine Protein NEG Urine Glucose (UA) 1000 OR GREATER Urine Ketones NEG Urine Occult Blood MOD Urine Nitrite NEG Urine Bilirubin NEG Urine Leukocyte Esterase TRACE Urine RBC 10-14 Urine WBC 9-14 Urine WBC Clumps FEW Urine Squamous Epithelial 0-5 Cells Microscopic Urinalysis Comment CULTURE INDICATED Total Bilirubin 0.5 Aspartate Amino Transf 19 (AST/SGOT) Alanine Aminotransferase 31 (ALT/SGPT) Alkaline Phosphatase 76 Total Protein 6.5 Albumin 3.2 Date/Time Procedure Status Source Growth 04/23/17 20:49 Urine Culture Received Urine Clean Catch Pending Result Diagram: 04/24/1715 04/24/1715 Imaging Last Impressions Abdomen/Pelvis CT 04/23/172011 Signed Impressions: Service Date/Time: Tuesday, April 23, 2017 20:26 - CONCLUSION: 1. 5 mm stone at the left proximal ureter with mild dilatation of the left collecting system. 2. Bilateral nonobstructing renal stones in the collecting systems. 3. Calcified gallstones. 4. Colonic diverticula. Joey Floyd MD Assessment and Plan Problem List: (1) Urinary tract infection ICD Code: N39.0 Status: Acute Plan: Rocephin IV, follow-up cultures Complicated due to stone and diabetes (2) Left ureteral calculus ICD Code: N20.1 Status: Acute Plan: Continue to strain urine, previous episodes are similar. No urgent need for urological consultation at this time although patient will need outpatient follow-up. Continue IV fluids and Flomax (3) Poorly controlled diabetes mellitus ICD Code: E11.65 Status: Acute Plan: Patient to be counseled with diabetic teaching Hemoglobin A1c pending, metformin held and sliding scale insulin with Kathi Hernández MD Apr 24, 2017 08:53
[2017-04-24] MEDS ORDERED: CIPROFLOXACIN 400 MG PREMIX 200 ML IV SCH (09:00)
[2017-04-24] MEDS: cefTRIAXone INJ 1,000 MG in SODIUM CHLORIDE 0.9% INJ 100 ML IV SCH (10:35)
[2017-04-24 12:00] VITALS: BP 95/67; PULSE 84; RESP 16; TEMP 97; O2SAT 96
[2017-04-24 13:09] LABS: HEMOGLOBIN A1a 1.8 %; HEMOGLOBIN A1b 1.4 %; HEMOGLOBIN Ao 74.1 %; HEMOGLOBIN F 2.1 %; HEMOGLOBIN LA1C 3.1 %; HEMOGLOBIN P3 5.4 %
[2017-04-24 16:00] VITALS: BP 110/82; PULSE 78; RESP 16; TEMP 96.6; O2SAT 93
[2017-04-24 20:53] VITALS: BP 102/77; PULSE 77; RESP 20; TEMP 98.3; O2SAT 96
[2017-04-24] MEDS ORDERED: ATORVASTATIN 80 MG TAB PO SCH (21:00)
[2017-04-24] MEDS ORDERED: ATORVASTATIN 40 MG TAB PO SCH (21:00)
[2017-04-24] MEDS ORDERED: TAMSULOSIN HCL 0.4 MG CAP PO SCH (21:00)
[2017-04-24] MEDS ORDERED: DONEPEZIL HCL 5 MG TAB PO SCH (21:00)
[2017-04-24] MEDS ORDERED: MIRTAZAPINE 15 MG TAB PO SCH (21:00)
[2017-04-25 00:36] VITALS: BP 105/76; PULSE 69; RESP 18; TEMP 98.9; O2SAT 97
[2017-04-25] MEDS: SODIUM CHLOR 0.9% 1000 ML INJ 1,000 ML IV SCH (03:47)
[2017-04-25] MEDS: ACETAMINOPHEN/HYDROcodone 325 MG/5 MG TAB PO PRN ×2 (04:05→09:36)
[2017-04-25] MEDS: INSULIN ASPART SUPPLEMENTAL SCALE SQ SCH (07:00)
[2017-04-25 08:00] VITALS: BP 118/80; PULSE 84; RESP 19; TEMP 97.7; O2SAT 93
[2017-04-25] MEDS: DOCUSATE SODIUM 50 MG/SENNA 8.6 MG TAB PO SCH (08:18)
[2017-04-25] MEDS: GABAPENTIN 300 MG CAP PO SCH (08:19)
[2017-04-25] MEDS: cefTRIAXone INJ 1,000 MG in SODIUM CHLORIDE 0.9% INJ 100 ML IV SCH (08:19)
[2017-04-25] MEDS: FERROUS SULFATE 325 MG (65 MG ELEMENTAL IRON) TAB PO SCH (08:19)
[2017-04-25] MEDS: glipiZIDE 5 MG TAB PO SCH (08:20)
[2017-04-25] MEDS: DULoxetine HCl DR 60 MG CAP PO SCH (08:21)
[2017-04-25] MEDS: SODIUM CHLORIDE 0.9% FLUSH 10 ML FLUSH IV FLUSH SCH (08:22)
[2017-04-25] MEDS: PANTOPRAZOLE SOD 20 MG DELAYED RELEASE TAB PO SCH (08:23)
[2017-04-25] MEDS: ISOSORBIDE MONONITRATE 30 MG TAB PO SCH (08:23)
[2017-04-25] MEDS ORDERED: HYDR-3516 PO (10:21)
--- NOTE | 2017-04-25 10:21 | HHI.DCPOC ---
Discharge Care Plan Diagnosis: (1) Cystitis (2) Poorly controlled diabetes mellitus (3) Left ureteral calculus Goals to Promote Your Health * To prevent worsening of your condition and complications * To maintain your health at the optimal level Directions to Meet Your Goals Take your medications as prescribed Follow your dietary instruction Follow activity as directed Keep your appointments as scheduled Take your immunizations and boosters as scheduled If your symptoms worsen call your PCP, if no PCP go to Urgent Care Center or Emergency Room Smoking is Dangerous to Your Health. Avoid second hand smoke Call the 24-hour hour crisis hotline for domestic abuse at Kathi Georges MD Apr 25, 2017 10:21
--- NOTE | 2017-04-25 10:27 | HHI.DS ---
stephen Discharge Summary Admission Date Apr 23, 2017 at 22:10 Discharge Date: Apr 25, 2017 Admitting Diagnosis left ureteral stone with intractable pain, UTI, DM poor control (1) Urinary tract infection ICD Code: N39.0 (2) Left ureteral calculus ICD Code: N20.1 (3) Poorly controlled diabetes mellitus ICD Code: E11.65 Procedures none Brief History - From Admission Patient is a 71-year-old gentleman with a known history of nephrolithiasis and diabetes. He came to the emergency room with 1 day right sided flank pain and with some urinary urgency and dysuria. Patient says that he feels the pain radiated into his testicle and has come to the emergency room for further evaluation. He says this is quite similar to previous episodes of his recurrent nephrolithiasis although it hasn't happened in some time and he has not seen a urologist in some time. Patient at this time and had an imaging studies which confirmed a right 5 mm stone in the collecting system. Patient has been recommended for observation and for further evaluation and treatment. His pain is improved with hydrocodone. Patient also appears to have urinary tract infection and is poorly controlled diabetes CBC/BMP: 04/24/17 0615 04/24/17 0615 Significant Findings Laboratory Tests Test 04/23/17 04/23/17 04/24/17 20:10 20:49 06:15 Hemoglobin 12.3 GM/DL 10.9 GM/DL (13.0-17.0) (13.0-17.0) Hematocrit 37.5 % 35.4 % (39.0-51.0) (39.0-51.0) Mean Corpuscular Volume 73.7 FL 75.0 FL (80.0-100.0) (80.0-100.0) Mean Corpuscular Hemoglobin 24.2 PG 23.1 PG (27.0-34.0) (27.0-34.0) Neutrophils (%) (Auto) 71.6 % (16.0-70.0) Tear Drop Cells 1+ (NORMAL) Ovalocytes 1+ (NORMAL) 1+ (NORMAL) Sodium Level 135 MEQ/L (136-145) Blood Urea Nitrogen 26 MG/DL (7-18) 23 MG/DL (7-18) Estimat Glomerular Filtration 60 ML/MIN (>89) Rate Random Glucose 462 MG/DL 290 MG/DL (74-106) (74-106) Urine Specific [place] GREATER THAN 1.035 (1.002-1.035) Urine Glucose (UA) 1000 OR GREATER mg/dL (NEG) Urine Occult Blood MOD (NEG) Urine Leukocyte Esterase TRACE (NEG) Urine RBC 10-14 /hpf (0-3) Urine WBC 9-14 /hpf (0-5) Urine WBC Clumps FEW (NONE) Mean Corpuscular Hemoglobin 30.8 % Concent (32.0-36.0) Hemoglobin A1c 12.1 % (4.3-6.0) Calcium Level 8.3 MG/DL (8.5-10.1) Albumin 3.2 GM/DL (3.4-5.0) Imaging Last Impressions Abdomen/Pelvis CT 04/23/172011 Signed Impressions: Service Date/Time: Tuesday, April 23, 2017 20:26 - CONCLUSION: 1. 5 mm stone at the left proximal ureter with mild dilatation of the left collecting system. 2. Bilateral nonobstructing renal stones in the collecting systems. 3. Calcified gallstones. 4. Colonic diverticula. Joey Floyd MD PE at Discharge GENERAL: This is a well-nourished, well-developed patient, in no apparent distress. CARDIOVASCULAR: Regular rate and rhythm without murmurs, gallops, or rubs. RESPIRATORY: Clear to auscultation. Breath sounds equal bilaterally. No wheezes , rales, or rhonchi. GASTROINTESTINAL: Abdomen soft, non-tender, nondistended. Normal active bowel sounds MUSCULOSKELETAL: Extremities without clubbing, cyanosis, or edema. NEURO: Alert & Oriented x4 to person, place, time, situation. Moves all ext x4 Pt update on day of discharge Patient seen in follow-up today for nephrolithiasis. Doing better. Pain well- controlled. Diabetes uncontrolled and patient admits poor dietary and medication adherence. Discharge plans discussed with patient Hospital Course Patient seen and treated for urinary tract infection with left ureteral calculus. Patient with known history of nephrolithiasis and symptoms similar to previous episodes. Images did show a left ureteral calculus and patient was given IV hydration. Did have evidence of UTI which was treated with antibiotics as well as uncontrolled blood sugars and hemoglobin A1c of 12.3 patient is instructed to continue IV fluids and strain his urine and improve adherence to diabetic management Diabetic teaching was arranged Pt Condition on Discharge: Good Discharge Disposition: Discharge Home Discharge Time: > 30 minutes Discharge Instructions DIET: Follow Instructions for: Diabetic Diet Activities you can perform: Regular-No Restrictions Other Activity Instructions: strain urine Follow up Referrals: Urology - 1 Week @ [facility] New Medications: Hydrocodone-Acetaminophen (Hydrocodone-Acetaminophen) 5-325 mg Tab 1 TAB PO Q4H PRN pain #20 TAB Continued Medications: Amcinonide Topical (Amcinonide Topical) 0.1% Cream 1 APPLIC TOPICAL BID Apply a thin film to affected area(s) Skin Treatment #15 Ref 0 GM Aspirin (Aspirin Low Dose) 81 Mg Chew 81 MG CHEW DAILY Ref 0 TAB Atorvastatin (Atorvastatin) 80 Mg Tab 80 MG PO HS Cholesterol Management #30 Ref 0 TAB Ciprofloxacin (Cipro) 500 Mg Tab 500 MG PO BID Infection Days 10 Ref 0 TAB Clopidogrel (Clopidogrel) 75 Mg Tab 75 MG PO DAILY Blood Clot Prevention #30 Ref 0 TAB Donepezil (Donepezil) 10 Mg Tab 10 MG PO HS Dementia #30 Ref [address] (Dul[address]) 60 Mg Capdr 60 MG PO DAILY #30 Ref 0 CAP Ferrous Sulfate (Feosol) 200 Mg Tab 200 MG PO DAILY Nutritional Supplement #30 Ref 0 TAB Gabapentin (Gabapentin) 300 Mg Cap 300 MG PO TID #90 Ref 0 CAP Glipizide (Glipizide) 5 Mg Tab 7.5 MG PO BIDAC Take 30 minutes before a meal Blood Sugar Management #60 Ref 0 TAB Hydrocodone-Acetaminophen (Hydrocodone-Acetaminophen) 7.5-325 mg Tab 1 TAB PO TID PRN PAIN Ref 0 TAB Hydrocodone-Acetaminophen (Lortab) 5-325 Mg Tab 1-2 TAB PO Q6H PRN PAIN #30 Ref 0 TAB Isosorbide Mononitrate ER (Isosorbide Mononitrate ER) 30 Mg Rakesh 30 MG PO DAILY@07 htn #30 TAB Lisinopril (Lisinopril) 5 Mg Tab 5 MG PO DAILY Blood Pressure Management #30 Ref 0 TAB Metformin (Metformin) 1,000 Mg Tab 1000 MG PO BIDPC With meals Blood Sugar Management #60 Ref 0 TAB Mirtazapine (Mirtazapine) 30 Mg Tab 30 MG PO HS Depression Control #30 Ref 0 TAB Omeprazole (Omeprazole) 20 Mg Tab 20 MG PO BID #30 Ref 0 TAB Ondansetron (Zofran) 4 Mg Tab 4 MG PO Q6HR PRN NAUSEA OR VOMITING #30 Ref 0 TAB Sitagliptin (Januvia) 100 Mg Tab 100 MG PO DAILY Blood Sugar Management #30 Ref 0 TAB Tamsulosin (Flomax) 0.4 Mg Cap 0.4 MG PO HS Manage Prostate Problems #30 Ref 0 CAP Kathi Georges MD Apr 25, 2017 10:27
[2017-04-25] MEDS ORDERED: metFORMIN HCL 500 MG TAB PO ONE (10:30)
[2017-04-25 10:36] VITALS: RESP 20
[2017-04-25] MEDS ORDERED: CIPR-9 PO (10:47)
== END 2017-04-25 12:00 | disposition home or self-care (01) ==
LOC: PHED 19:46 → PHEDA 22:10 → PH3A 04-24 00:22
PROVIDERS: ADMIT Hospitalist; ATTEND Hospitalist
DX: N30.90 Cystitis, unspecified without hematuria (principal); N20.2 Calculus of kidney with calculus of ureter; E11.65 Type 2 diabetes mellitus with hyperglycemia; E11.21 Type 2 diabetes mellitus with diabetic nephropathy; K57.30 Diverticulosis of large intestine without perforation or abscess without bleeding; K80.20 Calculus of gallbladder without cholecystitis without obstruction; I70.90 Unspecified atherosclerosis; I25.10 Atherosclerotic heart disease of native coronary artery without angina pectoris; G30.9 Alzheimer's disease, unspecified; F02.80 Dementia in other diseases classified elsewhere, unspecified severity, without behavioral disturbance, psychotic disturbance, mood disturbance, and anxiety; E78.00 Pure hypercholesterolemia, unspecified; I25.2 Old myocardial infarction; G47.33 Obstructive sleep apnea (adult) (pediatric); F32.9 Major depressive disorder, single episode, unspecified; M19.90 Unspecified osteoarthritis, unspecified site; Z95.1 Presence of aortocoronary bypass graft; Z86.73 Personal history of transient ischemic attack (TIA), and cerebral infarction without residual deficits; Z79.899 Other long term (current) drug therapy; Z79.82 Long term (current) use of aspirin; Z79.84 Long term (current) use of oral hypoglycemic drugs; Z87.442 Personal history of urinary calculi
CPT/HCPCS: 74176; 80048; 80053; 81001; 82948; 83036; 85025; 87086; 96361; 96374; 96375; 99285; G0378; J0696; J0744; J1815; J1885; J2270; J2405; J7030; J0330